=== PATIENT | male | born 1965 | race Caucasian/White ===

== ENCOUNTER 2019-07-17 04:24 | Emergency (ER) | payer BC, OTHER ==
--- NOTE | 2019-07-17 04:27 | PDOC ---
History of Present Illness - General History Source: Patient Exam Limitations: No Limitations - History of Present Illness Initial Comments: Pt is a 54 yo M, with PMH of brain tumor (received radiation treatment as adolescent) with subsequent frequent BCC of the face, and HTN, who presents via car from home after bleeding from his biopsy site. Pt states at 2 pm yesterday, he had a biopsy done by dermatology (Dr. Whitlock), but did not put a bandage on it overnight. Pt slept on that side and woke with bleeding. Pt bled through 2 pressure bandages applied by his , so came to ER. Pt does not take any AC. Pt denies any recent fevers/chills, headache, vertigo or light-headedness, vision changes, syncope, chest pain, palpitations, SOB, nausea/vomiting, abdominal pain, urinary symptoms, diarrhea/constipation, or leg swelling. Allergies: NKDA Derm: Dr. Whitlock Social: Pt denies any cigarette, alcohol, or drug use. Pt denies any recent travel or sick contacts. Surgical: as above Family: no relevant history. 07/17/19 05:02 <Maritza Medina - Last Filed: 07/17/19 05:09> <Chuck Adams - Last Filed: 07/17/19 05:34> - General Stated Complaint: BLEEDING LEFT EAR Time Seen by Provider: 07/17/19 04:27 Past History - Travel Traveled outside of the country in the last 30 days: No Close contact w/someone who was outside of country & ill: No <Maritza Medina - Last Filed: 07/17/19 05:09> <Chuck Adams - Last Filed: 07/17/19 05:34> - Past Medical History Home Medications: Ambulatory Orders Amlodipine Besylate 5 mg PO DAILY 07/17/19 Desmopressin Acetate [Ddavp] 0.2 mg PO TID 07/17/19 Losartan Potassium 100 mg PO DAILY 07/17/19 Review of Systems - Review of Systems Able to Perform ROS?: Yes Is the patient limited Guyanese proficient: No Constitutional: Yes: Weight Stable. No: Chills, Fever, Malaise HEENTM: No: Blurred Vision, Double Vision Respiratory: No: Cough, Shortness of Breath Cardiac (ROS): No: Chest Pain, Edema, Irregular Heart Rate, Lightheadedness, Palpitations, Syncope, Chest Tightness ABD/GI: No: Diarrhea, Nausea, Poor Appetite, Poor Fluid Intake, Vomiting : No: Burning, Dysuria, Pain, Urgency Musculoskeletal: No: Back Pain, Joint Pain, Muscle Pain, Muscle Weakness Integumentary: No: Rash Neurological: No: Headache, Numbness, Weakness, Unsteady Gait, Dizziness Psychiatric: No: Sleep Pattern Change, Change in Appetite Endocrine: No: Increased Urine, Change in Weight Hematologic/Lymphatic: No: Anemia, Blood Clots, Easy Bleeding, Easy Bruising <Maritza Medina - Last Filed: 07/17/19 05:09> *Physical Exam - Physical Exam Comments: Vitals stable, pt afebrile. Pt in NAD, obese body habitus. Pt alert and oriented x3. windows systems admin generally intact, muscular strength and sensation intact. No midline spinal tenderness, step-offs, or crepitus. Head normocephalic, atraumatic. Eyes PERRLA, EOMI. Oropharynx without erythema or exudates, no LAD b/l. No nasal congestion. TMs impacted with cerumen b/l. Hearing intact. Clear heart sounds, S1/S2, no JVD, b/l pedal edema, or heart murmur. Clear lung sounds, no respiratory distress, wheezes, crackles, or accessory muscle use. No abdominal or CVA tenderness to palpation, no rebound, no guarding. Abdomen soft, non-distended, and with normoactive bowel sounds. ~0.25 cm open, linear biopsy site to left orthodoxy region, just exterior to L ear. Bleeding well-controlled. Skin without jaundice or rash. 07/17/19 05:13 <Maritza Medina - Last Filed: 07/17/19 05:09> - Vital Signs Last Vital Signs Temp Pulse Resp BP Pulse Ox 99 F 91 H 20 135/86 97 07/17/19 04:37 07/17/19 04:37 07/17/19 04:37 07/17/19 04:37 07/17/19 04:37 <Chuck Adams - Last Filed: 07/17/19 05:34> Medical Decision Making - Medical Decision Making Pt was seen at bedside, also will be seen by attending Dr. Adams. Pt presenting with bleeding 2/2 to biopsy of left external ear/orthodoxy region yesterday. Pt not on AC and is asymptomatic. Pt declined pain medication at this time. Bleeding controlled after short period of holding pressure. Applied additional bacitracin and pressure dressing. Pt can be dc'd with f/u to joint cutter machine and PCP. 07/17/19 05:02 07/17/19 05:14 <AdamMaritza - Last Filed: 07/17/19 05:09> *DC/Admit/Observation/Transfer - Discharge Dispostion Decision to Admit order: No <Maritza Medina - Last Filed: 07/17/19 05:09> - Attestations Physician Attestion: 07/17/19 05:34 I have reviewed the plan as documented and agree with current plan as documented. Electronically co-signed by Chuck Adams MD <Chuck Adams - Last Filed: 07/17/19 05:34> Diagnosis at time of Disposition: Basal cell carcinoma (BCC) in situ of skin, Bleeding - Discharge Dispostion Disposition: HOME Condition at time of disposition: Improved - Referrals Referrals: Mitch Whitlock [Non Staff, Medical] - - Patient Instructions Printed Discharge Instructions: DI for Skin Lesion Removal, DI for Post- Surgical Bleeding Additional Instructions: You were seen in the ER today for bleeding after a biopsy done yesterday, which improved after some pressure in the ER. Please continue to keep the area clean, and you can apply bacitracin ointment to the area for antibiotic coverage. Please follow-up with your primary care doctor and joint cutter machine if necessary within 1-2 days to discuss your visit and make sure your symptoms have improved. Please return to the ER if you have any worsening or continued bleeding that does not stop with pressure, development of fevers or chills, loss of consciousness, inability to tolerate food or fluids, or any other concerns. Try to avoid sleeping on that side, or rubbing the area.
[2019-07-17 04:49] VITALS: BP 135/86; PULSE 91; TEMP 99; BMI 34.7
--- NOTE | 2019-07-17 05:08 | PDOC ---
Attending Attestation - Resident Resident Name: Maritza Medina - HPI HPI: 07/17/19 05:05 54m hx basal cell carcinoma s/p biopsy @ [facility] [employer] today presents with bleeding @ site of biopsy on L ear. Pt's states he took the bandage off the wound to sleep. While sleeping he noted the wound was bleeding. His applied direct pressure and note the wound began bleeding again. No CP Sob dizziness or palpitations. Not on AC, ASA, or plavix. - Physicial Exam PE: 07/17/19 05:06 agree w/ resident exam 2cm wound 5cm anterior to L ear, clot in place no active bleeding - Medical Decision Making 07/17/19 05:07 bleeding from biopsy site, now controlled. Stable vitals - not tachypnic or tachycardic. reassurance dressing placed return precautions.
== END 2019-07-17 05:08 | disposition home or self-care (01) ==
LOC: JER 04:24
DX: H95.42 Postprocedural hemorrhage of ear and mastoid process following other procedure (principal); Y84.8 Other medical procedures as the cause of abnormal reaction of the patient, or of later complication, without mention of misadventure at the time of the procedure; Z85.828 Personal history of other malignant neoplasm of skin
CPT/HCPCS: 99281-25

== ENCOUNTER 2019-11-05 12:37 | Inpatient (IN) | payer OTHER ==
--- NOTE | 2019-11-05 13:25 | PDOC ---
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 reports that he got lost on the way to his doctor's office and had some confusion regarding the month and the year. The patient reports that for the past week or so he has increased polyuria for which he has doubled his desmopression. He denies any fevers, illness, chest pain, shortness of breath or any other symptoms. Of note the patient has been caring for his as well as working the past few weeks as she broke her ankle. He has no other complaints. ROS GENERAL/CONSTITUTIONAL: No fever or chills. No weakness. HEAD, EYES, EARS, NOSE AND THROAT: No change in vision. No ear pain or discharge. No sore throat. CARDIOVASCULAR: No chest pain or shortness of breath RESPIRATORY: No cough, wheezing, or hemoptysis. GASTROINTESTINAL: No nausea, vomiting, diarrhea or constipation. GENITOURINARY: No dysuria, frequency, or change in urination. MUSCULOSKELETAL: No joint or muscle swelling or pain. No neck or back pain. SKIN: No rash NEUROLOGIC: No headache, vertigo, loss of consciousness, or change in strength/ sensation. PE GENERAL: Awake, alert, and fully oriented, in no acute distress HEAD: No signs of trauma, normocephalic, atraumatic EYES: PERRLA, EOMI, sclera anicteric, conjunctiva clear ENT: oropharynx clear without exudates. Moist mucosa NECK: Normal ROM, supple, LUNGS: No distress, speaks full sentences, clear to auscultation bilaterally HEART: Regular rate and rhythm, normal S1 and S2, no murmurs, rubs or gallops, peripheral pulses normal and equal bilaterally. ABDOMEN: Soft, nontender No guarding, no rebound. No masses EXTREMITIES : Normal inspection, Normal range of motion, no edema. No clubbing or cyanosis. NEUROLOGICAL: Intermittently does not recall month and date, but corrects self. Cranial nerves II through XII grossly intact. Normal speech no focal sensorimotor deficits SKIN: Warm, Dry, normal turgor, no rashes or lesions noted MDM DDX including but not limited to: electroylte vs infectious vs intracranial pathology ED Course: head ct, cxr, ua, cbc, cmp, ekg bloodwork wnl head ct - negative on reassessment, patient still mildly confused at not fully at baseline case discussed with medicine who agrees to admission plan to admit Chel Prudy PGY2 Emergency Medicine Past History - Past Medical History Allergies/Adverse Reactions: Allergies Allergy/AdvReac Type Severity Reaction Status Date / Time No Known Allergies Allergy Verified 11/05/19 13:09 Home Medications: Ambulatory Orders Amlodipine Besylate 5 mg PO DAILY 07/17/19 Desmopressin Acetate [Ddavp] 0.4 mg PO TID 07/17/19 Losartan Potassium 100 mg PO DAILY 07/17/19 Cancer: Yes COPD: No Diabetes: Yes (Insipidus) HTN: Yes - Immunization History Td Vaccination: Yes TDAP Vaccination: Yes Immunization Up to Date: Yes - Psycho Social/Smoking Cessation Hx Smoking History: Never smoked Have you smoked in the past 12 months: No Information on smoking cessation initiated: No Hx Alcohol Use: No Drug/Substance Use Hx: No *Physical Exam - Vital Signs Last Vital Signs Temp Pulse Resp BP Pulse Ox 98.9 F 84 18 135/68 95 11/05/19 13:05 11/05/19 13:05 11/05/19 13:05 11/05/19 13:05 11/05/19 13:12 ED Treatment Course - LABORATORY CBC & Chemistry Diagram: 11/06/19 05:50 11/06/19 05:50 Discharge - Discharge Information Problems reviewed: Yes Clinical Impression/Diagnosis: AMS (altered mental status) - Admission Yes - Follow up/Referral - Patient Discharge Instructions - Post Discharge Activity
[2019-11-05 13:53] LABS: BASO % 0.8 % (0-2.0); EOS % 7.5 % (0-4.5); HEMATOCRIT 41.8 % (35.4-49); HEMOGLOBIN 14.2 GM/dL (11.7-16.9); MCH 28.6 pg (25.7-33.7); MCHC 33.9 g/dl (32.0-35.9); MEAN CELL VOLUME 84.3 fl (80-96); MEAN PLT VOLUME 7.1 fl (7.5-11.1); MONO % 10.9 % (3.8-10.2); NEUT % 69.8 % (42.8-82.8); PLATELET COUNT 238 K/MM3 (134-434); RBC 4.95 M/mm3 (4.00-5.60); RDW 14.5 % (11.9-15.9); WHITE BLOOD COUNT 5.1 K/mm3 (4.0-10.0)
[2019-11-05 14:14] LABS: ALBUMIN 4.2 g/dl (3.4-5.0); BILIRUBIN,TOTAL 0.4 mg/dL (0.2-1); BLOOD UREA NITROGEN 18.2 mg/dL (7-18); CALCIUM 9.1 mg/dL (8.5-10.1); CREATININE 1.1 mg/dL (0.55-1.3); POTASSIUM 4.1 mmol/L (3.5-5.1)
[2019-11-05 14:27] LABS: URINE APPEARANCE CLEAR; URINE BILIRUBIN NEGATIVE (NEGATIVE); URINE COLOR YELLOW; URINE GLUCOSE (UA) NEGATIVE (NEGATIVE); URINE KETONE NEGATIVE (NEGATIVE); URINE LEUK ESTERASE NEGATIVE (NEGATIVE); URINE NITRITE NEGATIVE (NEGATIVE); URINE PROTEIN NEGATIVE (NEGATIVE); URINE UROBILINOGEN 0.2 mg/dL (0.2-1.0)
[2019-11-05 14:36] LABS: MAGNESIUM 2.3 mg/dL (1.8-2.4); PHOSPHOROUS 4.8 mg/dL (2.5-4.9)
--- NOTE | 2019-11-05 15:14 | EKG ---
Test Reason : Blood Pressure : / mmHG Vent. Rate : 073 BPM Atrial Rate : 073 BPM P-R Int : 154 ms QRS Dur : 082 ms QT Int : 406 ms P-R-T Axes : 043 035 038 degrees QTc Int : 447 ms POOR DATA QUALITY, INTERPRETATION MAY BE ADVERSELY AFFECTED NORMAL SINUS RHYTHM NORMAL ECG NO PREVIOUS ECGS AVAILABLE Confirmed by MALGORZATA JENKINS MD ([id number]) on 11/05/2019 3:14:26 PM Referred By: Confirmed By:MALGORZATA JENKINS MD
--- NOTE | 2019-11-05 16:05 | PDOC ---
Documentation entered by Victoria Billy SCRIBE, acting as scribe for Nancy Gomez MD. Nancy Gomez MD: This documentation has been prepared by the Mariajose roger Xhesika, SCRIBE, under my direction and personally reviewed by me in its entirety. I confirm that the documentation accurately reflects all work, treatment, procedures, and medical decision making performed by me. Attending Attestation - Resident Resident Name: Chel Purdy - ED Attending Attestation I have performed the following: I have examined & evaluated the patient, The case was reviewed & discussed with the resident, I agree w/resident's findings & plan, Exceptions are as noted - HPI HPI: 11/05/19 14:05 The patient is a 54 year old female with a significant PMH of basal cell carcinoma s/p biopsy, HTN, and Insipidus diabetes who presents to the emergency department for 1 week of increased urinary frequency and headache. Patient notes his Desmopressin Acetate was doubled from .2mg to .4mg. Pt reports feeling fatigue. notes the patient has been confused today, patient did not know the month and date. The patient denies chest pain, shortness of breath, and dizziness. Denies fever , chills, cough, nausea, vomiting, diarrhea and constipation. Denies dysuria, frequency, urgency and hematuria. Allergies: NKDA Derm: Dr. Whitlock - Physicial Exam PE: 11/05/19 16:01 GENERAL: The patient is in no acute distress, slowed responses. ENT: Ears normal, nares patent, oropharynx clear without exudates. Moist mucous membranes. NECK: Normal range of motion, supple LUNGS: Breath sounds equal, clear to auscultation bilaterally. No wheezes, and no crackles. HEART:Regular rate and rhythm, normal S1 and S2 without murmur, rub or gallop. ABDOMEN: Soft, nontender, normoactive bowel sounds. EXTREMITIES: Normal range of motion, no edema. NEUROLOGICAL: Cranial nerves II through XII grossly intact. Normal speech. No focal neurological deficits. SKIN: Warm, Dry, normal turgor, no rashes or lesions noted. - Medical Decision Making 11/05/19 16:02 Laboratory Tests 11/05/19 11/05/19 11/05/19 13:42 13:42 13:58 WBC 5.1 Hgb 14.2 Hct 41.8 Plt Count 238 BUN 18.2 H Creatinine 1.1 Urine Blood Urine Nitrite Ur Leukocyte Esterase Urine Osmolality Ur Random Sodium 53 11/05/19 11/05/19 14:00 14:00 WBC Hgb Hct Plt Count BUN Creatinine Urine Blood Negative Urine Nitrite Negative Ur Leukocyte Esterase Negative Urine Osmolality [address] head: Mild volume loss, ventricular dilatation and chronic microvascular ischemic disease Focal chronic infarct in the right anterior periventricular white matter No gross acute intracranial pathology Will contact drum sander 11/05/19 16:04
--- NOTE | 2019-11-05 17:19 | PN ---
Teaching Attending Note Name of Resident: Duran Dumont ATTENDING PHYSICIAN STATEMENT I saw and evaluated the patient. I reviewed the resident's note and discussed the case with the resident. I agree with the resident's findings and plan as documented. SUBJECTIVE: Patient is a 54 year old male with history of pinealoma (s/p radiation as teenager), diabetes insipidus, hypertension, presents with complaint of confusion. As per patient he doubled his dose of the desmopressin since did not want to get up at night since was urinating constantly. OBJECTIVE: Vital Signs Temperature 98.9 F 11/05/19 13:05 Pulse Rate 79 11/05/19 16:51 Respiratory Rate 17 11/05/19 16:51 Blood Pressure 152/93 11/05/19 16:51 O2 Sat by Pulse Oximetry (%) 100 11/05/19 16:51 GENERAL: The patient is awake, alert, and fully oriented, in no acute distress. HEAD: Normal with no signs of trauma. EYES: PERRL, extraocular movements intact, sclera anicteric, conjunctiva clear. ENT: Ears normal, oropharynx clear without exudates, moist mucous membranes. NECK: Trachea midline, full range of motion, supple. LUNGS: Breath sounds equal, clear to auscultation bilaterally, no wheezes, no crackles, no accessory muscle use. HEART: Regular rate and rhythm, S1, S2 without murmur, rub or gallop. ABDOMEN: Soft, nontender, nondistended, normoactive bowel sounds, no guarding, no rebound, no hepatosplenomegaly, no masses. EXTREMITIES: 2+ pulses, warm, well-perfused, no edema. NEUROLOGICAL: Cranial nerves II through XII grossly intact. Normal speech, gait not observed. PSYCH: Normal mood, normal affect. SKIN: Warm, dry, normal turgor, no rashes or lesions noted CBCD WBC 5.1 K/mm3 (4.0-10.0) 11/05/19 13:42 RBC 4.95 M/mm3 (4.00-5.60) 11/05/19 13:42 Hgb 14.2 GM/dL (11.7-16.9) 11/05/19 13:42 Hct 41.8 % (35.4-49) 11/05/19 13:42 MCV 84.3 fl (80-96) 11/05/19 13:42 MCHC 33.9 g/dl (32.0-35.9) 11/05/19 13:42 RDW 14.5 % (11.9-15.9) 11/05/19 13:42 Plt Count 238 K/MM3 (134-434) 11/05/19 13:42 MPV 7.1 fl (7.5-11.1) L 11/05/19 13:42 CMP Sodium 144 mmol/L (136-145) 11/05/19 13:42 Potassium 4.1 mmol/L (3.5-5.1) 11/05/19 13:42 Chloride 108 mmol/L (98-107) H 11/05/19 13:42 Carbon Dioxide 28 mmol/L (21-32) 11/05/19 13:42 Anion Gap 8 MMOL/L (8-16) 11/05/19 13:42 BUN 18.2 mg/dL (7-18) H 11/05/19 13:42 Creatinine 1.1 mg/dL (0.55-1.3) 11/05/19 13:42 Random Glucose 95 mg/dL (74-106) 11/05/19 13:42 Calcium 9.1 mg/dL (8.5-10.1) 11/05/19 13:42 Total Bilirubin 0.4 mg/dL (0.2-1) 11/05/19 13:42 AST 17 U/L (15-37) 11/05/19 13:42 ALT 33 U/L (13-61) 11/05/19 13:42 Alkaline Phosphatase 69 U/L (45-117) 11/05/19 13:42 Total Protein 7.0 g/dl (6.4-8.2) 11/05/19 13:42 Albumin 4.2 g/dl (3.4-5.0) 11/05/19 13:42 Home Medications Medication Instructions Recorded Amlodipine Besylate 5 mg PO DAILY 07/17/19 Desmopressin Acetate [Ddavp] 0.2 mg PO TID 07/17/19 Losartan Potassium 100 mg PO DAILY 07/17/19 CT head: Mild volume loss, ventricular dilatation and chronic microvascular ischemic disease Focal chronic infarct in the right anterior periventricular white matter No gross acute intracranial pathology ASSESSMENT AND PLAN: Patient is a 54yo male with Hx of DI presented with acute change of mental status and as per patient he doubles the dose of desmopressin at nights to 0.4mg since has been going to the bathroom more than usual. # Acute mild dehydration nepro/neuro/endocrine on the case , will repeat labs in am # Hx of DI will continue with 0.3mg of desmopressin bid, check sodium level in am # chronic focal infarct in the right anterior periventricular white matter , ordered MRI is pending , EEg is pending , as per neuro nothing to be done. DVt Px: early ambulation /scds
--- NOTE | 2019-11-05 18:10 | HP ---
CHIEF COMPLAINT: confusion Relief Captain: Dr. Grant Owens HISTORY OF PRESENT ILLNESS: Patient is a 54 year old male with history of pinealoma (s/p radiation as teenager), diabetes insipidus, hypertension, presents with complaint of confusion. 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 Upon EMS presentation, patient reportedly was unable to answer month, or year accurately. Patients denies prior occurrence of these symptoms. Denies any trauma, falls, or loss of consciousness. Patient does admit doubling his evening dose of Desmopressin due to excessive urination during the day, in attempt to diminishing nocturia. Upon my encounter, patient is alert, oriented to person, place, and year. Admits improvement of his symptoms, however states he still feels tired, and expresses concern that he is responding slower than his baseline. 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 (2) NIHSS 0 (upon my encounter). 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 Absent: fever, chills, diaphoresis, generalized weakness, malaise, loss of appetite, weight change HEENT: Absent: rhinorrhea, nasal congestion, throat pain, throat swelling, difficulty swallowing, mouth swelling, ear pain, eye pain, visual changes CARDIOVASCULAR: Absent: chest pain, syncope, palpitations, irregular heart rate, lightheadedness , peripheral edema RESPIRATORY: Absent: cough, shortness of breath, dyspnea with exertion, orthopnea, wheezing, stridor, hemoptysis GASTROINTESTINAL: Absent: abdominal pain, abdominal distension, nausea, vomiting, diarrhea, constipation, melena, hematochezia GENITOURINARY: Absent: dysuria, frequency, urgency, hesitancy, hematuria, flank pain, genital pain MUSCULOSKELETAL: Absent: myalgia, arthralgia, joint swelling, back pain, neck pain SKIN: Absent: rash, itching, pallor HEMATOLOGIC/IMMUNOLOGIC: Absent: easy bleeding, easy bruising, lymphadenopathy, frequent infections ENDOCRINE: Absent: unexplained weight gain, unexplained weight loss, heat intolerance, cold intolerance NEUROLOGIC: Endorses: mental status change. Absent: headache, focal weakness or paresthesias , dizziness, unsteady gait, seizure, bladder or bowel incontinence PSYCHIATRIC: Absent: anxiety, depression, suicidal or homicidal ideation, hallucinations. PHYSICAL EXAMINATION Vital Signs - 24 hr 11/05/19 11/05/19 11/05/19 13:05 13:12 16:51 Temperature 98.9 F Pulse Rate 84 Pulse Rate [ 79 Apical] Respiratory 18 17 Rate Blood Pressure 135/68 Blood Pressure 152/93 [Left Arm] O2 Sat by Pulse 95 95 100 Oximetry (%) GENERAL: The patient is awake, alert, and fully oriented, in no acute distress. HEAD: Normocephalic, atraumatic. EYES: PERRL, extraocular movements intact, sclera anicteric, conjunctiva clear. ENT: Oropharynx clear, without erythema or exudates. Moist mucous membranes. NECK: Trachea midline, full range of motion. Supple without lymphadenopathy. Negative nucchal rigidity. LUNGS: Breath sounds equal, clear to auscultation bilaterally, no wheezes, no crackles. No accessory muscle use. HEART: Regular rate and rhythm, S1, S2 without murmur, rub or gallop. ABDOMEN: Soft, nondistended, nontender to light and deep palpation x4 quadrants , no rebound tenderness, no guarding. Normoactive bowel sounds x4 quadrants. no hepatosplenomegaly, no masses. EXTREMITIES: 2+ radial, dorsalis pedis pulses bilaterally. Warm, well-perfused. No lower extremity edema bilaterally. NEUROLOGICAL: Cranial nerves II through XII grossly intact. Normal speech. Strength 5/5 bilateral upper and lower extremities. NIHSS 0. PSYCH: Flat affect upon my encounter SKIN: Warm, dry. Laboratory Results - last 24 hr 11/05/19 11/05/19 11/05/19 13:42 13:42 13:58 WBC 5.1 RBC 4.95 Hgb 14.2 Hct 41.8 MCV 84.3 MCH 28.6 MCHC 33.9 RDW 14.5 Plt Count 238 MPV 7.1 L Absolute Neuts (auto) 3.6 Neutrophils % 69.8 Lymphocytes % 11.0 Monocytes % 10.9 H Eosinophils % 7.5 H Basophils % 0.8 Nucleated RBC % 0 Sodium 144 Potassium 4.1 Chloride 108 H Carbon Dioxide 28 Anion Gap 8 BUN 18.2 H Creatinine 1.1 Est GFR (CKD-EPI)AfAm 87.13 Est GFR (CKD-EPI)NonAf 75.17 Random Glucose 95 Calcium 9.1 Phosphorus 4.8 Magnesium 2.3 Total Bilirubin 0.4 AST 17 ALT 33 Alkaline Phosphatase 69 Total Protein 7.0 Albumin 4.2 Urine Color Urine Appearance Urine pH Ur Specific [place] Urine Protein Urine Glucose (UA) Urine Ketones Urine Blood Urine Nitrite Urine Bilirubin Urine Urobilinogen Ur Leukocyte Esterase Urine Osmolality Ur Random Sodium 53 11/05/19 11/05/19 14:00 14:00 WBC RBC Hgb Hct MCV MCH MCHC RDW Plt Count MPV Absolute Neuts (auto) Neutrophils % Lymphocytes % Monocytes % Eosinophils % Basophils % Nucleated RBC % Sodium Potassium Chloride Carbon Dioxide Anion Gap BUN Creatinine Est GFR (CKD-EPI)AfAm Est GFR (CKD-EPI)NonAf Random Glucose Calcium Phosphorus Magnesium Total Bilirubin AST ALT Alkaline Phosphatase Total Protein Albumin Urine Color Yellow Urine Appearance Clear Urine pH 5.0 Ur Specific [place] 1.026 Urine Protein Negative Urine Glucose (UA) Negative Urine Ketones Negative Urine Blood Negative Urine Nitrite Negative Urine Bilirubin Negative Urine Urobilinogen 0.2 Ur Leukocyte Esterase Negative Urine Osmolality 857 Ur Random Sodium ASSESSMENT/PLAN: Patient is a 54 year old male with history of pinealoma (s/p radiation as teenager), diabetes insipidus, hypertension admitted for acute metabolic encephalopathy. 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 -NIHSS 0 -Case discussed with Dr. Muse, given lack of WBC count, fever, or nuucchal rigidity with improvement of mental status, no indication for spinal tap at this time. Recommendations appreciated. -Obtain MRI brain, an EEG -Follow blood cultures, urine cultures. Monitor without antibiotics as patient afebrile, without WBC elevation. -Fall precautions Diabetes insipidus -Desmopressin dose confirmed with [facility]; continue 0.2mg two tablets three times per day. -Nephrology consult (Dr. Benton) appreciated -Endocrinology consult (Dr. Quiroz) appreciated Hypertension -Continue home medications; Losartan 100mg PO daily, Amlodipine 5mg PO daily FEN -No IV fluids indicated -Follow BMP -Sodium controlled diet Prophylaxis -Heparin 5000units subq TID Disposition -Admit to Telemetry floor Visit type - Emergency Visit Emergency Visit: Yes ED Registration Date: 11/05/19 Care time: The patient presented to the Emergency Department on the above date and was hospitalized for further evaluation of their emergent condition. - New Patient This patient is new to me today: Yes Date on this admission: 11/05/19 - Critical Care Critical Care patient: No ATTENDING PHYSICIAN STATEMENT I saw and evaluated the patient. I reviewed the resident's note and discussed the case with the resident. I agree with the resident's findings and plan as documented. SUBJECTIVE: OBJECTIVE: ASSESSMENT AND PLAN:
--- NOTE | 2019-11-05 19:31 | CON.NEURO ---
Consult - Alcohol/Substance Use Hx Alcohol Use: No - Smoking History Smoking history: Never smoked Have you smoked in the past 12 months: No Home Medications - Allergies Allergies/Adverse Reactions: Allergies Allergy/AdvReac Type Severity Reaction Status Date / Time No Known Allergies Allergy Verified 11/05/19 13:09 - Home Medications Home Medications: Ambulatory Orders Amlodipine Besylate 5 mg PO DAILY 07/17/19 Desmopressin Acetate [Ddavp] 0.4 mg PO TID 07/17/19 Losartan Potassium 100 mg PO DAILY 07/17/19 Physical Exam-Neuro Vital Signs: Vital Signs Temperature 98.9 F 11/05/19 13:05 Pulse Rate 79 11/05/19 16:51 Respiratory Rate 17 11/05/19 16:51 Blood Pressure 152/93 11/05/19 16:51 O2 Sat by Pulse Oximetry (%) 100 11/05/19 16:51 Labs: CBC, BMP 11/05/19 13:42 11/05/19 13:42 Assessment/Plan CC Episode of confusion HPI 54 year old male history of Pinealoma ( s.p radition during his teens), Diabetes, insipidus, HTN. Patient was brought for confusion and disroientation. His desmopressin was increased. Patient denies any head injury, fever , vomiting or hemiparesis. Patient has ct head it is unremarkable. There is chronic microvascular changes. 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 Smoking: denies smoking cigarettes Alcohol: denies alcohol consumption Drugs: denies illicit drug use Allergies No Known Allergies Allergy (Verified 11/05/19 13:09) HOME MEDICATIONS: Home Medications Medication Instructions Recorded Amlodipine Besylate 5 mg PO DAILY 07/17/19 Desmopressin Acetate [Ddavp] 0.2 mg PO TID 07/17/19 Losartan Potassium 100 mg PO DAILY 07/17/19 ROS,FH,SH reviewed in chart NEUROLOGICAL EXAMINATION Alert oriented x 3, neck is supple , vss, speech is normal, eom, pupils reactive no face asymmetry moving all ext sensation is normal ftn,hts is normal ct head unemarkable Assessment/Plan 4 year old male history of Pinealoma ( s.p radition during his teens), Diabetes, insipidus, HTN. was brought for acute confusion, now resolved. Patient is feeling tired. ct head unemarkable. Most likely transient metabolic abnormality Plan: suggest to do mri of brain and eeg - unlikley to be status epilepticus, meningitis - tia cant be ruled out, if mri of brain showed any ischemic changes, woudl do further work up Thanking you so much Marc Muse MD
[2019-11-05] MEDS ORDERED: DESMOPRESSIN ACETATE 0.2 MG TABLET PO SCH (22:00)
[2019-11-05] MEDS: DESMOPRESSIN ACETATE 0.1 MG TABLET PO SCH (23:05)
[2019-11-06 06:48] LABS: HEMATOCRIT 40.2 % (35.4-49); HEMOGLOBIN 13.9 GM/dL (11.7-16.9); MCH 28.8 pg (25.7-33.7); MCHC 34.7 g/dl (32.0-35.9); MEAN CELL VOLUME 83.1 fl (80-96); PLATELET COUNT 214 K/MM3 (134-434); RBC 4.84 M/mm3 (4.00-5.60); RDW 14.5 % (11.9-15.9); WHITE BLOOD COUNT 5.3 K/mm3 (4.0-10.0)
[2019-11-06 07:06] LABS: BILIRUBIN,TOTAL 0.6 mg/dL (0.2-1); BLOOD UREA NITROGEN 21.7 mg/dL (7-18); CALCIUM 8.9 mg/dL (8.5-10.1); CREATININE 1.1 mg/dL (0.55-1.3); MAGNESIUM 2.3 mg/dL (1.8-2.4); PHOSPHOROUS 4.3 mg/dL (2.5-4.9); POTASSIUM 3.7 mmol/L (3.5-5.1); TOT PROT 6.8 g/dl (6.4-8.2)
[2019-11-06] MEDS ORDERED: LOSARTAN POTASSIUM 50 MG TABLET (FP) ONE (09:56)
[2019-11-06] MEDS ORDERED: amLODIPine BESYLATE 5 MG TABLET (FP) ONE (09:56)
[2019-11-06] MEDS ORDERED: DIPHTH,PERTUSS(ACELL),TET 0.5 ML DISP.SYRIN IM ONE (10:16)
[2019-11-06] MEDS: amLODIPine BESYLATE 5 MG TABLET (FP) PO SCH (10:20)
[2019-11-06] MEDS: LOSARTAN POTASSIUM 50 MG TABLET (FP) PO SCH (10:20)
[2019-11-06] MEDS: DESMOPRESSIN ACETATE 0.1 MG TABLET PO SCH (12:13)
--- NOTE | 2019-11-06 13:54 | CONSULT ---
Consult Consult Specialty:: Endocrinology Referred by:: Duran Dumont Reason for Consultation:: DI - History of Present Illness Chief Complaint: AMS History of Present Illness: This is a 54 year old male with history of pinealoma (s/p radiation as teenager) , diabetes insipidus, hypertension who presented with complaint of confusion. 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 Upon EMS presentation, patient reportedly was unable to answer month, or year accurately. Patients denies prior occurrence of these symptoms. Denies any trauma, falls, or loss of consciousness. In the hosptila Pt was patient was alert, oriented to person, place, and year. Admits improvement of his symptoms, however stated that he still felt tired. Pt was on Desmopressin at home and had been taking 2 extra doses during the night to prevent nocturia. He says has nocturia 3 times if he does take the extra doses during the night, - History Source History Provided By: Patient, Family Member, Medical Record - Past Medical History Endocrine: Yes: Diabetes Insipidus - Alcohol/Substance Use Hx Alcohol Use: No - Smoking History Smoking history: Never smoked Have you smoked in the past 12 months: No Home Medications - Allergies Allergies/Adverse Reactions: Allergies Allergy/AdvReac Type Severity Reaction Status Date / Time No Known Allergies Allergy Verified 11/05/19 13:09 - Home Medications Home Medications: Ambulatory Orders Amlodipine Besylate 5 mg PO DAILY 07/17/19 Desmopressin Acetate [Ddavp] 0.4 mg PO TID 07/17/19 Losartan Potassium 100 mg PO DAILY 07/17/19 Review of Systems - Review of Systems Constitutional: reports: Malaise Eyes: reports: No Symptoms HENT: reports: No Symptoms Neck: reports: No Symptoms Cardiovascular: reports: No Symptoms Respiratory: reports: No Symptoms Gastrointestinal: reports: No Symptoms Genitourinary: reports: No Symptoms Musculoskeletal: reports: No Symptoms Neurological: reports: No Symptoms Endocrine: reports: No Symptoms Hematology/Lymphatic: reports: No Symptoms Psychiatric: reports: No Symptoms Physical Exam Vital Signs: Vital Signs Temperature 98.6 F 11/06/19 10:47 Pulse Rate 87 11/06/19 10:47 Respiratory Rate 19 11/06/19 10:47 Blood Pressure 145/67 11/06/19 10:47 O2 Sat by Pulse Oximetry (%) 99 11/06/19 10:47 Constitutional: Yes: No Distress, Calm Eyes: Yes: Conjunctiva Clear, EOM Intact HENT: Yes: Atraumatic, Normocephalic Neck: Yes: Supple, Trachea Midline Cardiovascular: Yes: Regular Rate and Rhythm Respiratory: Yes: Regular, CTA Bilaterally Gastrointestinal: Yes: Normal Bowel Sounds, Soft Renal/: Yes: WNL Breast(s): Yes: WNL Musculoskeletal: Yes: WNL Extremities: Yes: WNL Edema: No Neurological: Yes: Alert, Oriented Labs: CBC, BMP 11/06/19 05:50 11/06/19 05:50 Assessment/Plan AP: AMS: Metabolic Encephalopthu7 Seen by Neurology, Consult noted Transient metabolic disorder DI: On Desmopressin 0.4mg TID Will change to 0.2mg 8 AM 0.2mg at 2 PM, 0.4mg and 8 PM and 0.4mg at 12MN Monitor electrolytes Got Desmopressin 0.3mg today so far BMP now and in AM Adjust dose according to symptoms and BMP results Discussed with housestaff Will F/u
[2019-11-06] MEDS ORDERED: DESMOPRESSIN ACETATE 0.1 MG TABLET PO SCH (14:00)
[2019-11-06] MEDS ORDERED: POTASSIUM CHLORIDE TABS 20 MEQ TABLET.ER (FP) PO ONE ×2 (15:19→16:32)
--- NOTE | 2019-11-06 15:31 | PN ---
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 Patient was brought for confusion and disroientation. His desmopressin was increased. Patient denies any head injury, fever , vomiting or hemiparesis. Patient has ct head it is unremarkable. There is chronic microvascular changes. confused resolved. mri of brain pending. eeg is normal. NEUROLOGICAL EXAMINATION Alert oriented x 3, neck is supple , vss, speech is normal, eom, pupils reactive no face asymmetry moving all ext sensation is normal ftn,hts is normal ct head unemarkable eeg is normal mri of brain pending Assessment/Plan 4 year old male history of Pinealoma ( s.p radition during his teens), Diabetes, insipidus, HTN. was brought for transient confusion, now resolved. Patient is feeling tired. ct head unemarkable. Most likely transient metabolic abnormality vs Trans global amnesia. Plan: eeg is normal, waiting for mri - unlikley to be status epilepticus, meningitis - TIA/Stroke cant be ruled out, if mri of brain showed any ischemic changes, would do further work up Thanking you so much Marc Muse MD
--- NOTE | 2019-11-06 17:04 | PN ---
Physical Exam: SUBJECTIVE: Patient seen and examined NAEON. No tele abnormalities noted Endorses fatigue. , at bedside, believes pt is more alert but not at baseline OBJECTIVE: Vital Signs Period Temp Pulse Resp BP Sys/Harmon Pulse Ox Last 24 Hr 97.6 F-98.6 F 71-87 17-20 124-153/67-93 97-100 GENERAL: The patient is awake, alert, and fully oriented, in no acute distress. Mildly lethargic-appearing HEAD: Normal with no signs of trauma. EYES: PERRL, extraocular movements intact, sclera anicteric, conjunctiva clear. No ptosis. ENT: Ears normal, nares patent, moist mucous membranes. NECK: Trachea midline, full range of motion, supple. LUNGS: Breath sounds equal, clear to auscultation bilaterally, no wheezes, no crackles, no accessory muscle use. HEART: Regular rate and rhythm, S1, S2 without murmur, rub or gallop. ABDOMEN: Soft, nontender, nondistended, normoactive bowel sounds, no guarding, no rebound, no hepatosplenomegaly, no masses. EXTREMITIES: 2+ pulses, warm, well-perfused, no edema. NEUROLOGICAL: Cranial nerves II through XII grossly intact. Normal speech, normal gait observed. PSYCH: Normal mood, normal affect. SKIN: Warm, dry, normal turgor, no rashes or lesions noted Laboratory Results - last 24 hr 11/06/19 11/06/19 05:50 05:50 WBC 5.3 RBC 4.84 Hgb 13.9 Hct 40.2 MCV 83.1 MCH 28.8 MCHC 34.7 RDW 14.5 Plt Count 214 MPV 7.0 L Sodium 143 Potassium 3.7 Chloride 109 H Carbon Dioxide 26 Anion Gap 7 L BUN 21.7 H Creatinine 1.1 Est GFR (CKD-EPI)AfAm 87.13 Est GFR (CKD-EPI)NonAf 75.17 Random Glucose 99 Calcium 8.9 Phosphorus 4.3 Magnesium 2.3 Total Bilirubin 0.6 AST 15 ALT 30 Alkaline Phosphatase 68 Total Protein 6.8 Albumin 4.0 Active Medications Generic Name Dose Route Start Last Admin Trade Name Freq PRN Reason Stop Dose Admin Amlodipine Besylate 5 mg 11/06/19 10:00 11/06/19 10:20 Norvasc - PO 5 mg DAILY JACKIE Administration Desmopressin Acetate 0.4 mg 11/06/19 14:00 Ddavp - PO TID JACKIE Losartan Potassium 100 mg 11/06/19 10:00 11/06/19 10:20 Cozaar - PO 100 mg DAILY JACKIE Administration ASSESSMENT/PLAN: 54 year old male with history of pinealoma (s/p radiation at 15yo), diabetes insipidus, hypertension, admitted for acute metabolic encephalopathy. Patient was expressing confusion, mild short-term memory loss. Has been endorsing frequent urination. Denying focal neurologic deficit. Etiology unclear. 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 > EEG(11/06/19) --read pending > MRI Brain --pending - NIHSS 0 - Neuro Consult(Dr. Muse) --no indication for spinal tap at this time --unlikley to be status epilepticus, meningitis --TIA cant be ruled out, if mri of brain showed any ischemic changes, woudl do further work up -Fall precautions #Diabetes insipidus - Nephro Consult(Dr Benton): -- Desmopressin 0.3mg TID -- fu PM Na - Endocrinology consult (Dr. Quiroz): --recs pending #chronic essential HTN -Continue home medications; Losartan 100mg PO daily, Amlodipine 5mg PO daily #FEN - No IV fluids indicated - Follow BMP - Sodium controlled diet #Prophylaxis -Heparin 5000units subq TID Disposition -Admit to Telemetry floor Visit type - Emergency Visit Emergency Visit: No - New Patient This patient is new to me today: No - Critical Care Critical Care patient: No ATTENDING PHYSICIAN STATEMENT I saw and evaluated the patient. I reviewed the resident's note and discussed the case with the resident. I agree with the resident's findings and plan as documented. SUBJECTIVE: OBJECTIVE: ASSESSMENT AND PLAN:
--- NOTE | 2019-11-06 17:05 | CONSULT ---
Consult Consult Specialty:: Nephrology Reason for Consultation:: diabetes insipidus - History of Present Illness Chief Complaint: altered mental status History of Present Illness: Pt is a 54 year old male with pmhx of pinealoma, diabetes insipidus and htn who presents to the ER with confusion. I was called to evaluate him as he has DI and is on desmopressin. He has not followed with endocrine in about a year. He recently increased his desmopressin dose at home. He currently feels well. He says that his confusion is improved. His is at bedside. His sodium was normal in the hospital. - History Source History Provided By: Patient - Past Medical History Cardio/Vascular: Yes: HTN Endocrine: Yes: Diabetes Insipidus - Alcohol/Substance Use Hx Alcohol Use: No - Smoking History Smoking history: Never smoked Have you smoked in the past 12 months: No Home Medications - Allergies Allergies/Adverse Reactions: Allergies Allergy/AdvReac Type Severity Reaction Status Date / Time No Known Allergies Allergy Verified 11/05/19 13:09 - Home Medications Home Medications: Ambulatory Orders Amlodipine Besylate 5 mg PO DAILY 07/17/19 Desmopressin Acetate [Ddavp] 0.4 mg PO TID 07/17/19 Losartan Potassium 100 mg PO DAILY 07/17/19 Family Medical History Family History: Denies Review of Systems - Review of Systems Constitutional: reports: Malaise Eyes: reports: No Symptoms HENT: reports: No Symptoms Neck: reports: No Symptoms Cardiovascular: reports: No Symptoms Respiratory: reports: No Symptoms Gastrointestinal: reports: No Symptoms Genitourinary: reports: No Symptoms Musculoskeletal: reports: No Symptoms Integumentary: reports: No Symptoms Neurological: reports: No Symptoms Endocrine: reports: No Symptoms Hematology/Lymphatic: reports: No Symptoms Psychiatric: reports: No Symptoms Physical Exam Vital Signs: Vital Signs Temperature 98.4 F 11/06/19 14:46 Pulse Rate 76 11/06/19 14:46 Respiratory Rate 18 11/06/19 14:46 Blood Pressure 124/79 11/06/19 14:46 O2 Sat by Pulse Oximetry (%) 99 11/06/19 10:47 Constitutional: Yes: Calm Eyes: Yes: Conjunctiva Clear HENT: Yes: Atraumatic Cardiovascular: Yes: S1, S2 Respiratory: Yes: CTA Bilaterally Gastrointestinal: Yes: Normal Bowel Sounds, Soft Renal/: Yes: WNL Musculoskeletal: Yes: WNL Edema: No Neurological: Yes: Oriented Psychiatric: Yes: Oriented Labs: CBC, BMP 11/06/19 05:50 11/06/19 05:50 Laboratory Tests 11/05/19 11/05/19 11/06/19 13:42 14:00 05:50 Sodium 143 Potassium 3.7 Chloride 109 H Carbon Dioxide 26 Anion Gap 7 L BUN 21.7 H Creatinine 1.1 1.1 Urine Protein Negative Urine Blood Negative Imaging - Results Chest X-ray: Report Reviewed Assessment/Plan Current Medications Generic Name Dose Route Start Last Admin Trade Name Freq PRN Reason Stop Dose Admin Amlodipine Besylate 5 mg 11/06/19 10:00 11/06/19 10:20 Norvasc - PO 5 mg DAILY JACKIE Administration Desmopressin Acetate 0.4 mg 11/06/19 14:00 Ddavp - PO TID JACKIE Losartan Potassium 100 mg 11/06/19 10:00 11/06/19 10:20 Cozaar - PO 100 mg DAILY JACKIE Administration Impression 1. diabetes insipidus 2. htn 3. change in mental status/confusion Plan - cont desmopressin as 0.4 q 8 hrs - monitor sodium level - discussed with endocrine - discussed with medical team - sodium level is stable - bp stable
[2019-11-06] MEDS: DESMOPRESSIN ACETATE 0.2 MG TABLET PO SCH ×2 (17:30→21:31)
--- NOTE | 2019-11-06 17:43 | PN ---
Teaching Attending Note Name of Resident: Enoch Armijo ATTENDING PHYSICIAN STATEMENT I saw and evaluated the patient. I reviewed the resident's note and discussed the case with the resident. I agree with the resident's findings and plan as documented. SUBJECTIVE: Patient is comfortable with no acute distress. Vital Signs Temperature 98.4 F 11/06/19 14:46 Pulse Rate 76 11/06/19 14:46 Respiratory Rate 18 11/06/19 14:46 Blood Pressure 124/79 11/06/19 14:46 O2 Sat by Pulse Oximetry (%) 99 11/06/19 10:47 GENERAL: The patient is awake, alert, and fully oriented, in no acute distress. HEAD: Normal with no signs of trauma. EYES: PERRL, extraocular movements intact, sclera anicteric, conjunctiva clear. ENT: Ears normal, oropharynx clear without exudates, moist mucous membranes. NECK: Trachea midline, full range of motion, supple. LUNGS: Breath sounds equal, clear to auscultation bilaterally, no wheezes, no crackles, no accessory muscle use. HEART: Regular rate and rhythm, S1, S2 without murmur, rub or gallop. ABDOMEN: Soft, NT,ND, normoactive bowel sounds, no guarding, no rebound, no hepatosplenomegaly, no masses. EXTREMITIES: 2+ pulses, warm, well-perfused, no edema. NEUROLOGICAL: Cranial nerves II through XII grossly intact. Normal speech, gait is stable . PSYCH: Normal mood, normal affect. SKIN: Warm, dry, normal turgor, no rashes or lesions noted CBCD WBC 5.1 K/mm3 (4.0-10.0) 11/05/19 13:42 RBC 4.95 M/mm3 (4.00-5.60) 11/05/19 13:42 Hgb 14.2 GM/dL (11.7-16.9) 11/05/19 13:42 Hct 41.8 % (35.4-49) 11/05/19 13:42 MCV 84.3 fl (80-96) 11/05/19 13:42 MCHC 33.9 g/dl (32.0-35.9) 11/05/19 13:42 RDW 14.5 % (11.9-15.9) 11/05/19 13:42 Plt Count 238 K/MM3 (134-434) 11/05/19 13:42 MPV 7.1 fl (7.5-11.1) L 11/05/19 13:42 CMP Sodium 144 mmol/L (136-145) 11/05/19 13:42 Potassium 4.1 mmol/L (3.5-5.1) 11/05/19 13:42 Chloride 108 mmol/L (98-107) H 11/05/19 13:42 Carbon Dioxide 28 mmol/L (21-32) 11/05/19 13:42 Anion Gap 8 MMOL/L (8-16) 11/05/19 13:42 BUN 18.2 mg/dL (7-18) H 11/05/19 13:42 Creatinine 1.1 mg/dL (0.55-1.3) 11/05/19 13:42 Random Glucose 95 mg/dL (74-106) 11/05/19 13:42 Calcium 9.1 mg/dL (8.5-10.1) 11/05/19 13:42 Total Bilirubin 0.4 mg/dL (0.2-1) 11/05/19 13:42 AST 17 U/L (15-37) 11/05/19 13:42 ALT 33 U/L (13-61) 11/05/19 13:42 Alkaline Phosphatase 69 U/L (45-117) 11/05/19 13:42 Total Protein 7.0 g/dl (6.4-8.2) 11/05/19 13:42 Albumin 4.2 g/dl (3.4-5.0) 11/05/19 13:42 Home Medications Medication Instructions Recorded Amlodipine Besylate 5 mg PO DAILY 07/17/19 Desmopressin Acetate [Ddavp] 0.2 mg PO TID 07/17/19 Losartan Potassium 100 mg PO DAILY 07/17/19 CT head: Mild volume loss, ventricular dilatation and chronic microvascular ischemic disease Focal chronic infarct in the right anterior periventricular white matter No gross acute intracranial pathology ASSESSMENT AND PLAN: Patient is a 54yo male with Hx of DI presented with acute change of mental status and as per patient he doubles the dose of desmopressin at nights to 0.4mg since has been going to the bathroom more than usual. # Acute mild dehydration nepro/neuro/endocrine on the case # Hx of DI , as per nephro to change the dose to 0.4mg tid of desmopressin. MRI is pending. # chronic focal infarct in the right anterior periventricular white matter ,mri is pending. DVT Px: SCds, heparin pending MRI
[2019-11-06] MEDS ORDERED: SODIUM CHLORIDE 1,000 ML IV SCH (19:45)
[2019-11-06] MEDS ORDERED: ASPIRIN 81 MG CHEWABLE TABLETS PO SCH (19:45)
[2019-11-06] MEDS ORDERED: ASPIRIN 81 MG CHEWABLE TABLETS PO ONE (20:00)
[2019-11-06] MEDS ORDERED: PT OWN MED DRAWER 7, Y5N ONE (21:07)
[2019-11-06 21:26] LABS: BLOOD UREA NITROGEN 18.9 mg/dL (7-18); CALCIUM 9.2 mg/dL (8.5-10.1); CREATININE 1.3 mg/dL (0.55-1.3); POTASSIUM 4.1 mmol/L (3.5-5.1)
[2019-11-06] MEDS: HEPARIN NA (PORCINE) 5,000 UNITS/ML 1ML VIAL SQ SCH (21:31)
[2019-11-06] MEDS: ATORVASTATIN CA 40 MG TABLET (FP) PO SCH (21:31)
[2019-11-07] MEDS: HEPARIN NA (PORCINE) 5,000 UNITS/ML 1ML VIAL SQ SCH ×3 (05:33→21:34)
[2019-11-07] MEDS: DESMOPRESSIN ACETATE 0.2 MG TABLET PO SCH ×3 (05:33→21:36)
[2019-11-07] MEDS ORDERED: ONDANSETRON 4 MG/2 ML VIAL IVPUSH ONE (06:10)
[2019-11-07] MEDS ORDERED: ONDANSETRON 4 MG/2 ML VIAL ONE (06:16)
[2019-11-07 06:23] LABS: HEMATOCRIT 39.2 % (35.4-49); HEMOGLOBIN 13.4 GM/dL (11.7-16.9); MCH 28.5 pg (25.7-33.7); MCHC 34.3 g/dl (32.0-35.9); MEAN CELL VOLUME 83.2 fl (80-96); MEAN PLT VOLUME 7.1 fl (7.5-11.1); PLATELET COUNT 211 K/MM3 (134-434); RBC 4.71 M/mm3 (4.00-5.60); RDW 14.3 % (11.9-15.9); WHITE BLOOD COUNT 4.8 K/mm3 (4.0-10.0)
[2019-11-07 07:00] LABS: BLOOD UREA NITROGEN 19.4 mg/dL (7-18); CALCIUM 8.7 mg/dL (8.5-10.1); CREATININE 1.1 mg/dL (0.55-1.3); MAGNESIUM 2.3 mg/dL (1.8-2.4); POTASSIUM 4.1 mmol/L (3.5-5.1)
[2019-11-07 07:03] LABS: CHOLESTEROL 166 mg/dL (50-200); HDL CHOLESTEROL 30 mg/dL (40-60); LDL CHOLESTEROL (ONLY SJRH) 105 mg/dL (5-100); TRIGLYCERIDES 226 mg/dL (0-150)
--- NOTE | 2019-11-07 09:22 | PN ---
Teaching Attending Note Name of Resident: Enoch Armijo ATTENDING PHYSICIAN STATEMENT I saw and evaluated the patient. I reviewed the resident's note and discussed the case with the resident. I agree with the resident's findings and plan as documented. SUBJECTIVE: Patient is comfortable with no acute distress. Vital Signs Temperature 97.5 F L 11/07/19 06:00 Pulse Rate 74 11/07/19 06:00 Respiratory Rate 20 11/07/19 06:00 Blood Pressure 142/78 11/07/19 06:00 O2 Sat by Pulse Oximetry (%) 99 11/06/19 21:00 GENERAL: The patient is awake, alert, and fully oriented, in no acute distress. HEAD: Normal with no signs of trauma. EYES: PERRL, extraocular movements intact, sclera anicteric, conjunctiva clear. ENT: Ears normal, oropharynx clear without exudates, moist mucous membranes. NECK: Trachea midline, full range of motion, supple. LUNGS: Breath sounds equal, clear to auscultation bilaterally, no wheezes, no crackles, no accessory muscle use. HEART: Regular rate and rhythm, S1, S2 without murmur, rub or gallop. ABDOMEN: Soft, NT,ND, normoactive bowel sounds, no guarding, no rebound, no hepatosplenomegaly, no masses. EXTREMITIES: 2+ pulses, warm, well-perfused, no edema. NEUROLOGICAL: Cranial nerves II through XII grossly intact. Normal speech, gait is stable . PSYCH: Normal mood, normal affect. SKIN: Warm, dry, normal turgor, no rashes or lesions noted CBCD WBC 4.8 K/mm3 (4.0-10.0) 11/07/19 06:00 RBC 4.71 M/mm3 (4.00-5.60) 11/07/19 06:00 Hgb 13.4 GM/dL (11.7-16.9) 11/07/19 06:00 Hct 39.2 % (35.4-49) 11/07/19 06:00 MCV 83.2 fl (80-96) 11/07/19 06:00 MCHC 34.3 g/dl (32.0-35.9) 11/07/19 06:00 RDW 14.3 % (11.9-15.9) 11/07/19 06:00 Plt Count 211 K/MM3 (134-434) 11/07/19 06:00 MPV 7.1 fl (7.5-11.1) L 11/07/19 06:00 CMP Sodium 142 mmol/L (136-145) 11/07/19 06:00 Potassium 4.1 mmol/L (3.5-5.1) 11/07/19 06:00 Chloride 110 mmol/L (98-107) H 11/07/19 06:00 Carbon Dioxide 25 mmol/L (21-32) 11/07/19 06:00 Anion Gap 7 MMOL/L (8-16) L 11/07/19 06:00 BUN 19.4 mg/dL (7-18) H 11/07/19 06:00 Creatinine 1.1 mg/dL (0.55-1.3) 11/07/19 06:00 Random Glucose 95 mg/dL (74-106) 11/07/19 06:00 Calcium 8.7 mg/dL (8.5-10.1) 11/07/19 06:00 Total Bilirubin 0.6 mg/dL (0.2-1) 11/06/19 05:50 AST 15 U/L (15-37) 11/06/19 05:50 ALT 30 U/L (13-61) 11/06/19 05:50 Alkaline Phosphatase 68 U/L (45-117) 11/06/19 05:50 Total Protein 6.8 g/dl (6.4-8.2) 11/06/19 05:50 Albumin 4.0 g/dl (3.4-5.0) 11/06/19 05:50 Current Medications Generic Name Dose Route Start Last Admin Trade Name Freq PRN Reason Stop Dose Admin Amlodipine Besylate 5 mg 11/06/19 10:00 11/06/19 10:20 Norvasc - PO 5 mg DAILY JACKIE Administration Aspirin 325 mg 11/07/19 10:00 Ecotrin - PO DAILY JACKIE Atorvastatin Calcium 40 mg 11/06/19 22:00 11/06/19 21:31 Lipitor - PO 40 mg HS JACKIE Administration Desmopressin Acetate 0.4 mg 11/06/19 14:00 11/07/19 05:33 Ddavp - PO 0.4 mg TID JACKIE Administration Heparin Sodium (Porcine) 5,000 unit 11/06/19 22:00 11/07/19 05:33 Heparin - SQ 5,000 unit TID JACKIE Administration Sodium Chloride 1,000 mls @ 75 mls/hr 11/06/19 19:45 11/06/19 21:43 Normal Saline - IV 11/07/19 14:00 75 mls/hr ASDIR JACKIE Administration Losartan Potassium 100 mg 11/06/19 10:00 11/06/19 10:20 Cozaar - PO 100 mg DAILY JCAKIE Administration Home Medications Medication Instructions Recorded Amlodipine Besylate 5 mg PO DAILY 07/17/19 Desmopressin Acetate [Ddavp] 0.2 mg PO TID 07/17/19 Losartan Potassium 100 mg PO DAILY 07/17/19 Laboratory Tests 11/07/19 06:00 Triglycerides 226 H Cholesterol 166 Total LDL Cholesterol 105 H HDL Cholesterol [address] head: Mild volume loss, ventricular dilatation and chronic microvascular ischemic disease Focal chronic infarct in the right anterior periventricular white matter No gross acute intracranial pathology MRI of the brain: acute infarct is noted within the posterior limb of the right internal capsule adjacent to the genu. echo: mild mr, mild tr, otherwise normal. ASSESSMENT AND PLAN: Patient is a 54yo male with Hx of DI presented with acute change of mental status and as per patient he doubles the dose of desmopressin at nights to 0.4mg since has been going to the bathroom more than usual. # Acute Stroke on aspirin and lipitor now, echo as above, carotid duplex pending result, will get cardio seeing the patient for possible afib. continue to monitor in tele. # Acute mild dehydration nepro/neuro/endocrine on the case # Hx of DI , as per nephro to change the dose to 0.4mg tid of desmopressin. # chronic focal infarct in the right anterior periventricular white matter. DVT Px: SCds, heparin
[2019-11-07] MEDS: amLODIPine BESYLATE 5 MG TABLET (FP) PO SCH (10:00)
[2019-11-07] MEDS ORDERED: ASPIRIN 81 MG CHEWABLE TABLETS PO SCH (10:00)
[2019-11-07] MEDS ORDERED: ASPIRIN 325 MG ENTERIC COATED TABLET (FP) PO SCH (10:00)
[2019-11-07] MEDS: LOSARTAN POTASSIUM 50 MG TABLET (FP) PO SCH (10:00)
[2019-11-07] MEDS: ASPIRIN COATED 81 MG TABLET.EC PO SCH (10:02)
[2019-11-07] MEDS ORDERED: PT OWN MED DRAWER 7, Y5N ONE ×4 (10:35→21:36)
--- NOTE | 2019-11-07 10:38 | PN ---
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 Patient was brought for confusion and disroientation. His desmopressin was increased. Patient denies any head injury, fever , vomiting or hemiparesis. Patient has ct head it is unremarkable. There is chronic microvascular changes. confused resolved. Patient has mri positive for right basal gangalia/IC small lacunar stroke. 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 was brought for transient confusion, now resolved. 2. right mca small lacunar stroke Plan: continue aspirin and statin - speech, pt, echo and carotid ultrasound -? paroxysmal atrial fibrillation on tele, work up as per primary - life style modification and stroke education was discussed Thanking you so much Marc Muse MD
--- NOTE | 2019-11-07 11:19 | CONSULT ---
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 Pt has been tolerating a soft diet and thin liquids since admission. Patient reported this morning, after given 6am meds, he felt like he had heartburn and then vomited bile. He denied coughing on the pill/water or it going down wrong. He reports that he gets heartburnm at home periodically and takes Tums for relief. He has not been seen by GI previously. He does recline at times after meals, drinks 2-3 cups caffeinated coffee daily, cranberry juice , some high fat foods, pizza. r/o GERD/Laryngopharyngeal reflux. Selected Entries 11/05/19 11/06/19 11/06/19 13:05 07:14 10:47 Breakfast Temperature 98.9 F 97.6 F 98.6 F 11/06/19 11/06/19 11/06/19 14:46 18:00 19:49 Breakfast Temperature 98.4 F 98.1 F 97.7 F 11/06/19 11/07/19 11/07/19 22:00 02:00 06:00 Breakfast Temperature 97.8 F 97.7 F 97.5 F L 11/07/19 11/07/19 08:57 09:05 Breakfast NPO Temperature 97.5 F L Laboratory Tests 11/05/19 11/06/19 11/07/19 13:42 05:50 06:00 WBC 5.1 5.3 4.8 History Source: Patient, Family Member (), Medical Record Limitations to Obtaining History: No Limitations - Past Medical History Cardiovascular: Yes: HTN Endocrine: Yes: Diabetes Insipidus - Smoking History Smoking history: Never smoked Have you smoked in the past 12 months: No - Alcohol/Substance Use Hx Alcohol Use: No - Social History Usual Living Arrangement: Yes: With Spouse ADL: Independent 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 History - Admission Reason For Visit: ALTERED MENTAL STATUS - Diagnostics X-ray: Report Reviewed CT Scan: Report Reviewed (ct head chronic microvascular changes) MRI: Report Reviewed ( mri positive for right basal gangalia/IC small lacunar stroke.) - General Mental Status: Alert and Oriented, Awake and Alert, Able to Follow Commands Attention: Intact - Hearing Hearing: Normal Speech Evaluation - Communication Primary Language: M[place] Communication: Yes: Within Normal Limits Oral Expression Ability: Yes: No Impairment - Speech Production Able to Make Needs Known: Yes: WNL Intelligibility: Yes: WNL - Speech Characteristics Voice Loudness: Normal Voice Pitch: Yes: Normal Voice Phonatory-based Quality: Yes: Normal Speech Pattern: Normal Speech Clarity: < 100% Nasal Resonance: Normal Articulation: Yes: Precise Rate of Speech: Intact - Language/Auditory Comprehension Follows: Yes: 2 Stage Simple Commands Observation: Able to respond to yes/no queries: Yes, Yes/No Confusion: No, Comprehends Conversational Speech: Yes - Language/Verbal Expression Able to Respond to Simple Queries: Yes: WNL Able to Communicate Wants and Needs: Yes: WNL Functional Communication Status: Yes: WNL - 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 Memory: Yes: WNL Short Term Memory: Yes: WNL - Swallow Evaluation/Bedside Assessment Current Nutritional Intake: NPO Oral Secretions: Yes: WFL Dentition: Yes: Adequate Facial Symmetry at Rest: Facial Droop Left Facial Symmetry on Retraction: Symmetrical Sensation: Normal Against Resistance Opening: Normal Against Resistance Closing: Normal Pucker Lips: Normal Smile: Normal Lingual Movement: Normal, Symmetric Lingual Speed of Movement: Normal Lingual Movement Strgth Against Opposition: Normal Lingual Movement Characteristics: Normal Velopharyngeal Movement: Normal Laryngeal Elevation: WFL Laryngeal Movement: Able to Palpate Needs Assistance: Yes Bolus Size: WFL Chewing: WFL Oral Prep Time: WFL A-P Transit: WFL Timing of Swallow: WFL Coughing/Throat Clear: Yes (Mostly (-) 3 oz water) Change in Voice: Yes (dysphonic briefly after drinking water and 1 brief throat clear) Recommendations - Speech Evaluation, Impression/Plan Impression: Language, speech, cognition intact. Swallowing seems ok- soft signs ? of dysphonia/brief throat clear? Pt reports intermittent gastroesophageal reflux. Educated on reducing caffiene, HOB elevated x 2 hours after meals and no PO intake within 3 hours of bedtime. - Dysphagia Impressions/Plan Dysphagia Impressions: Minimal Impairment *Silent aspiration: cannot be R/O at bedside Dysphagia Treatment Plan: OOB for meals, OOB for 1 h. after meals Recommendations: Modified Barium Swallow (If cough, congestion, downgrade diet and MBS) - Recommendations Diet Consistency: Regular (soft) Medication Administration: Whole with water Liquids: Thin Liquids
--- NOTE | 2019-11-07 11:57 | ECHO ---
Name: RAND BECKFORD Exam:Adult Echocardiogram Study Date: 11/07/2019 11:09 AM Age: 54 yrs Reason For Study: Stroke Height: 66 in Weight: 256 lb BSA: 2.2 m2 MMode/2D Measurements & Calculations IVSd: 1.0 cm Ao root diam: 3.0 cm LVIDd: 4.5 cm LA dimension: 3.6 cm LVIDs: 2.9 cm ACS: 2.2 cm LVPWd: 1.5 cm EDV(Teich): 90.2 ml LVOT diam: 2.2 cm ESV(Teich): 32.0 ml RV S Acosta: 12.7 cm/sec Doppler Measurements & Calculations MV E max acosta: 67.4 cm/sec MV A max acosta: 63.5 cm/sec MV dec slope: 306.1 cm/sec2 MV E/A: 1.1 Ao V2 max: 110.5 cm/sec LV V1 max P.2 mmHg Ao max P.9 mmHg LV V1 mean P.2 mmHg Ao V2 mean: 79.1 cm/sec LV V1 max: 101.9 cm/sec Ao mean P.9 mmHg LV V1 mean: 69.4 cm/sec Ao V2 VTI: 25.6 cm LV V1 VTI: 22.7 cm IVELISSE(I,D): 3.3 cm2 IVELISSE(V,D): 3.5 cm2 MR max acosta: 188.2 cm/sec SV(LVOT): 85.7 ml MR max P.2 mmHg TR max acosta: 165.4 cm/sec PA V2 max: 66.0 cm/sec TR max P.4 mmHg PA max P.7 mmHg Med Peak E' Acosta: 9.9 cm/sec Med E/e': 6.8 Lat Peak E' Acosta: 11.5 cm/sec Lat E/e': 5.8 Procedure The study was technically difficult with many images being suboptimal in quality. Left Ventricle Left ventricular systolic function is normal. Left ventricular systolic function is grossly normal. L eft Ventricular Filling pattern is normal for age. Regional wall motion abnormalities cannot be excluded due to limited visualization. Right Ventricle The right ventricle is grossly normal size. The right ventricular systolic function is grossly normal . Atria Normal left and right atrial size and function. Mitral Valve The mitral valve is grossly normal. There is no mitral valve stenosis. There is mild mitral regurgita tion. Tricuspid Valve The tricuspid valve is normal in structure and function. There is mild tricuspid regurgitation. Right ventricular systolic pressure is normal. Aortic Valve The aortic valve opens well. The aortic valve is not well visualized. No hemodynamically significant valvular aortic stenosis. No aortic regurgitation is present. Pulmonic Valve The pulmonic valve is not well seen, but is grossly normal. There is no pulmonic valvular stenosis. T here is no pulmonic valvular regurgitation. Great Vessels The aortic root is normal size. Pericardium/Pleura There is no pericardial effusion. Interpretation Summary The study was technically difficult with many images being suboptimal in quality. Left ventricular systolic function is normal. Left ventricular systolic function is grossly normal. There is mild mitral regurgitation. There is mild tricuspid regurgitation. Right ventricular systolic pressure is normal. The aortic valve opens well. The aortic valve is not well visualized. There is no pericardial effusion. MD Dailey *Alli 11/07/2019 11:57 AM
--- NOTE | 2019-11-07 14:34 | CON.CARD ---
Consult Consult Specialty:: Cardiology Referred by:: Hospitalist Medicine - History of Present Illness Chief Complaint: Altered mental status History of Present Illness: 54 year old male history of Pinealoma s/p radiation during his teens, Diabetes, insipidus, HTN brought in for confusion and disroientation since resolved. His desmopressin was increased. Patient denies any head injury, fever , vomiting or hemiparesis, chest pain, palpitations, dyspnea, orthopnea, PND or LE edema. Ct head shows old stroke and chronic microvascular changes. Brain mri positive for right basal gangalia/IC small lacunar stroke. He denies any difficulty with speaking or motor weakness. 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 Home Medications - Allergies Allergies/Adverse Reactions: Allergies Allergy/AdvReac Type Severity Reaction Status Date / Time No Known Allergies Allergy Verified 11/05/19 13:09 - Home Medications Home Medications: Ambulatory Orders Amlodipine Besylate 5 mg PO DAILY 07/17/19 Losartan Potassium 100 mg PO DAILY 07/17/19 Desmopressin Acetate [Desmopressin Acetate -] 0.4 mg PO TID 30 Days #90 tablet 11/06/19 Review of Systems - Review of Systems Neurological: reports: Confusion Vital Signs: Vital Signs Temperature 98.4 F 11/07/19 13:00 Pulse Rate 70 11/07/19 13:00 Respiratory Rate 18 11/07/19 13:00 Blood Pressure 133/83 11/07/19 13:00 O2 Sat by Pulse Oximetry (%) 98 11/07/19 09:00 Constitutional: Yes: No Distress, Calm Neck: Yes: Supple Respiratory: Yes: Regular, CTA Bilaterally Gastrointestinal: Yes: Normal Bowel Sounds, Soft Cardiovascular: Yes: Regular Rate and Rhythm JVD: No Carotid Bruit: No Heart Sounds: Yes: S1, S2 Murmur: Yes: Systolic Murmur, Grade 1 Peripheral Pulses WNL: No - Other Data Labs, Other Data: CBC, BMP 11/07/19 06:00 11/07/19 06:00 NSR @ 73 Tele: No PAF Ejection Fraction %: LVEF > or = 40 % Imaging - Results Chest X-ray: Report Reviewed (NAD) Problem List - Problems (1) Hypertension Code(s): I10 - ESSENTIAL (PRIMARY) HYPERTENSION Qualifiers: Hypertension type: essential hypertension Qualified Code(s): I10 - Essential (primary) hypertension (2) Acute lacunar stroke Code(s): I63.81 - OTHER CEREB INFRC DUE TO OCCLS OR STENOSIS OF SMALL ARTERY (3) Diabetes insipidus Code(s): E23.2 - DIABETES INSIPIDUS (4) AMS (altered mental status) Code(s): R41.82 - ALTERED MENTAL STATUS, UNSPECIFIED Qualifiers: Altered mental status type: unspecified Qualified Code(s): R41.82 - Altered mental status, unspecified Assessment/Plan CT head: Mild volume loss, ventricular dilatation and chronic microvascular ischemic disease Focal chronic infarct in the right anterior periventricular white matter No gross acute intracranial pathology MRI of the brain: Right mca small lacunar stroke Echo: mild mr, mild tr, otherwise normal. EEG Normal 1. Altered mental status referable to acute lacunar stroke 2. HTN 3. Diabetes insipidis P:1. F/u holter and surveillance system monitor to r/o PAF. If unrevealing may benefit from longer term arrhythmia monitoring 2. ASA 81 qd, losartan 100 qd, Norvasc 5 qd and Lipitor 40 qd 3. Cont with desmopressin 0.4 TID with monitor Na 4. Thank you for consultative opportunity
--- NOTE | 2019-11-07 15:17 | PN ---
Progress Note, Physician History of Present Illness: Pt seen and examined at bedside. He is awake and appears comfortable. He denies shortness of breath. - Current Medication List Current Medications: Active Medications Amlodipine Besylate (Norvasc -) 5 mg PO DAILY [facility] Last Admin: 11/07/19 10:00 Dose: 5 mg Aspirin (Ecotrin -) 81 mg PO DAILY [facility] Last Admin: 11/07/19 10:02 Dose: 81 mg Atorvastatin Calcium (Lipitor -) 40 mg PO HS JACKIE Last Admin: 11/06/19 21:31 Dose: 40 mg Desmopressin Acetate (Ddavp -) 0.4 mg PO TID [facility] Last Admin: 11/07/19 14:28 Dose: 0.4 mg Heparin Sodium (Porcine) (Heparin -) 5,000 unit SQ TID [facility] Last Admin: 11/07/19 14:28 Dose: 5,000 unit Losartan Potassium (Cozaar -) 100 mg PO DAILY [facility] Last Admin: 11/07/19 10:00 Dose: 100 mg - Objective Vital Signs: Vital Signs Temperature 98.4 F 11/07/19 13:00 Pulse Rate 70 11/07/19 13:00 Respiratory Rate 18 11/07/19 13:00 Blood Pressure 133/83 11/07/19 13:00 O2 Sat by Pulse Oximetry (%) 98 11/07/19 09:00 Constitutional: Yes: Calm Eyes: Yes: Conjunctiva Clear HENT: Yes: Atraumatic Neck: Yes: Supple Cardiovascular: Yes: S1, S2 Respiratory: Yes: CTA Bilaterally Gastrointestinal: Yes: Soft Genitourinary: Yes: WNL Musculoskeletal: Yes: WNL Edema: No Neurological: Yes: Oriented Psychiatric: Yes: Oriented Labs: CBC, BMP 11/07/19 06:00 11/07/19 06:00 Assessment/Plan Current Medications Generic Name Dose Route Start Last Admin Trade Name Freq PRN Reason Stop Dose Admin Amlodipine Besylate 5 mg 11/06/19 10:00 11/07/19 10:00 Norvasc - PO 5 mg DAILY JACKIE Administration Aspirin 81 mg 11/07/19 10:00 11/07/19 10:02 Ecotrin - PO 81 mg DAILY JACKIE Administration Atorvastatin Calcium 40 mg 11/06/19 22:00 11/06/19 21:31 Lipitor - PO 40 mg HS JACKIE Administration Desmopressin Acetate 0.4 mg 11/06/19 14:00 11/07/19 14:28 Ddavp - PO 0.4 mg TID JACKIE Administration Heparin Sodium (Porcine) 5,000 unit 11/06/19 22:00 11/07/19 14:28 Heparin - SQ 5,000 unit TID JACKIE Administration Losartan Potassium 100 mg 11/06/19 10:00 11/07/19 10:00 Cozaar - PO 100 mg DAILY JACKIE Administration Impression 1. diabetes insipidus 2. htn 3. change in mental status/confusion 4. CVA Plan - sodium is stable - cont with desmopressin 0.4 TID - monitor sodium daily - monitor bp - neuro follow up - cont desmopressin as 0.4 q 8 hrs - monitor sodium level - discussed with endocrine - discussed with medical team - sodium level is stable - bp stable
--- NOTE | 2019-11-07 16:16 | PN ---
Physical Exam: SUBJECTIVE: Patient seen and examined O/N: MRI reading of acute infarct of R-basal ganglia. Neurology recommend ASA and Statin, no further intervention as deficit was minimal O/N Tele: no alarms noted No complaints OBJECTIVE: Vital Signs Period Temp Pulse Resp BP Sys/Harmon Pulse Ox Last 24 Hr 97.5 F-98.4 F 70-87 16-20 133-150/72-90 98-99 GENERAL: The patient is awake, alert, and fully oriented, in no acute distress. Mildly lethargic-appearing HEAD: Normal with no signs of trauma. EYES: PERRL, extraocular movements intact, sclera anicteric, conjunctiva clear. No ptosis. ENT: Ears normal, nares patent, moist mucous membranes. NECK: Trachea midline, full range of motion, supple. LUNGS: Breath sounds equal, clear to auscultation bilaterally, no wheezes, no crackles, no accessory muscle use. HEART: Regular rate and rhythm, S1, S2 without murmur, rub or gallop. ABDOMEN: Soft, nontender, nondistended, normoactive bowel sounds, no guarding, no rebound, no hepatosplenomegaly, no masses. EXTREMITIES: 2+ pulses, warm, well-perfused, no edema. NEUROLOGICAL: Cranial nerves II through XII grossly intact. Normal speech, normal gait observed. NIHSS 1(Left-sided nasolabial effacement) PSYCH: Normal mood, normal affect. SKIN: Warm, dry, normal turgor, no rashes or lesions noted Laboratory Results - last 24 hr 11/06/19 11/07/19 11/07/19 17:34 06:00 06:00 WBC 4.8 RBC 4.71 Hgb 13.4 Hct 39.2 MCV 83.2 MCH 28.5 MCHC 34.3 RDW 14.3 Plt Count 211 MPV 7.1 L Sodium 144 142 Potassium 4.1 4.1 Chloride 110 H 110 H Carbon Dioxide 29 25 Anion Gap 5 L 7 L BUN 18.9 H 19.4 H Creatinine 1.3 1.1 Est GFR (CKD-EPI)AfAm 71.19 87.13 Est GFR (CKD-EPI)NonAf 61.43 75.17 Random Glucose 99 95 Calcium 9.2 8.7 Phosphorus 4.0 Magnesium 2.3 Triglycerides Cholesterol Total LDL Cholesterol HDL Cholesterol 11/07/19 06:00 WBC RBC Hgb Hct MCV MCH MCHC RDW Plt Count MPV Sodium Potassium Chloride Carbon Dioxide Anion Gap BUN Creatinine Est GFR (CKD-EPI)AfAm Est GFR (CKD-EPI)NonAf Random Glucose Calcium Phosphorus Magnesium Triglycerides 226 H Cholesterol 166 Total LDL Cholesterol 105 H HDL Cholesterol 30 L Active Medications Generic Name Dose Route Start Last Admin Trade Name Freq PRN Reason Stop Dose Admin Amlodipine Besylate 5 mg 11/06/19 10:00 11/07/19 10:00 Norvasc - PO 5 mg DAILY JACKIE Administration Aspirin 81 mg 11/07/19 10:00 11/07/19 10:02 Ecotrin - PO 81 mg DAILY JACKIE Administration Atorvastatin Calcium 40 mg 11/06/19 22:00 11/06/19 21:31 Lipitor - PO 40 mg HS JACKIE Administration Desmopressin Acetate 0.4 mg 11/07/19 22:30 Ddavp - PO Q8H JACKIE Heparin Sodium (Porcine) 5,000 unit 11/06/19 22:00 11/07/19 14:28 Heparin - SQ 5,000 unit TID JACKIE Administration Losartan Potassium 100 mg 11/06/19 10:00 11/07/19 10:00 Cozaar - PO 100 mg DAILY JACKIE Administration ASSESSMENT/PLAN: 54 year old male with history of pinealoma (s/p radiation at 15yo), diabetes insipidus, hypertension, admitted for acute metabolic encephalopathy. Patient was expressing confusion, mild short-term memory loss. Has been endorsing frequent urination. Has mild Left-sided nasolabial effacement. Neuro rec ASA + statin. Pt's insisting on hearing about an episode of documented Afib. No afib found on documentation. Neuro consulted Cardio. Echo normal. US carotid normal. Cardio([facility]) placed pt on Holter. S&S rec soft diet with thin liquids. Walked 400ft w/ PT. #Acute metabolic encephalopathy --ischemia CVA > CT Head(11/05/19): mild volume loss, ventricular dilation, chronic microvascular changes with chronic infarct right anterior periventricular white matter. > EEG(11/06/19) --no abnormalities > MRI Brain(11/06/19) --acute infarct of posterior limb of Right internal capsule > Echo(11/07/19) --suboptimal quality, normal LV function > Carotid US(11/07/19) --no significant stenosis - NIHSS 0(11/05/19) - NIHSS 1(Left-sided nasolabial effacement)(11/06/19) - Neuro Consult(Dr. Muse) --no indication for spinal tap --unlikley to be status epilepticus, meningitis --rec carotid US, echo --normal --rec cardio consult - S&S: soft diet w/ thin liquids - PT: 400ft, no outpt needs - Fall precautions #?Atrial Fibrillation --self-reported, no documented tele alarms - Cardio Consult([facility]): --cw ASA and statin --pt on Holter #Diabetes insipidus - Nephro Consult(Dr Benton): -- Desmopressin 0.4mg q8h -- fu PM Na - Endocrinology consult (Dr. Quiroz): --recs pending #Dyslipidemia > T cholesterol 166, LDL 105, TG 266 - cw statin #chronic essential HTN -Continue home medications; Losartan 100mg PO daily, Amlodipine 5mg PO daily #FEN - No IV fluids indicated - Follow BMP - Sodium controlled diet #Prophylaxis -Heparin 5000units subq TID Disposition -Admit to Telemetry floor Visit type - Emergency Visit Emergency Visit: No - New Patient This patient is new to me today: No - Critical Care Critical Care patient: No - Discharge Referral Referred to [facility] Med P.C.: No ATTENDING PHYSICIAN STATEMENT I saw and evaluated the patient. I reviewed the resident's note and discussed the case with the resident. I agree with the resident's findings and plan as documented. SUBJECTIVE: OBJECTIVE: ASSESSMENT AND PLAN:
[2019-11-07 17:39] LABS: POTASSIUM 4.1 mmol/L (3.5-5.1)
[2019-11-07] MEDS: ATORVASTATIN CA 40 MG TABLET (FP) PO SCH (21:34)
[2019-11-08] MEDS ORDERED: PT OWN MED DRAWER 7, Y5N ONE ×2 (05:13→21:34)
[2019-11-08 06:22] LABS: HEMATOCRIT 38.8 % (35.4-49); HEMOGLOBIN 13.4 GM/dL (11.7-16.9); MCH 28.6 pg (25.7-33.7); MCHC 34.5 g/dl (32.0-35.9); MEAN CELL VOLUME 82.8 fl (80-96); MEAN PLT VOLUME 7.2 fl (7.5-11.1); PLATELET COUNT 189 K/MM3 (134-434); RBC 4.68 M/mm3 (4.00-5.60); RDW 14.1 % (11.9-15.9); WHITE BLOOD COUNT 4.5 K/mm3 (4.0-10.0)
[2019-11-08 06:47] LABS: BLOOD UREA NITROGEN 17.9 mg/dL (7-18); CALCIUM 8.4 mg/dL (8.5-10.1); MAGNESIUM 2.1 mg/dL (1.8-2.4); PHOSPHOROUS 3.6 mg/dL (2.5-4.9); POTASSIUM 4.2 mmol/L (3.5-5.1)
[2019-11-08] MEDS: DESMOPRESSIN ACETATE 0.2 MG TABLET PO SCH ×3 (06:48→22:07)
[2019-11-08] MEDS: HEPARIN NA (PORCINE) 5,000 UNITS/ML 1ML VIAL SQ SCH ×3 (06:48→22:07)
[2019-11-08] MEDS: LOSARTAN POTASSIUM 50 MG TABLET (FP) PO SCH (09:56)
[2019-11-08] MEDS: ASPIRIN COATED 81 MG TABLET.EC PO SCH (09:57)
[2019-11-08] MEDS: amLODIPine BESYLATE 5 MG TABLET (FP) PO SCH (09:57)
--- NOTE | 2019-11-08 10:01 | PN ---
Progress Note, Physician History of Present Illness: No PAF on telemetry thus far, sensorium has cleared to baseline. - Current Medication List Current Medications: Active Medications Amlodipine Besylate (Norvasc -) 5 mg PO DAILY [facility] Last Admin: 11/08/19 09:57 Dose: 5 mg Aspirin (Ecotrin -) 81 mg PO DAILY [facility] Last Admin: 11/08/19 09:57 Dose: 81 mg Atorvastatin Calcium (Lipitor -) 40 mg PO HS [facility] Last Admin: 11/07/19 21:34 Dose: 40 mg Desmopressin Acetate (Ddavp -) 0.4 mg PO Q8H [facility] Last Admin: 11/08/19 06:48 Dose: 0.4 mg Heparin Sodium (Porcine) (Heparin -) 5,000 unit SQ TID [facility] Last Admin: 11/08/19 06:48 Dose: 5,000 unit Losartan Potassium (Cozaar -) 100 mg PO DAILY [facility] Last Admin: 11/08/19 09:56 Dose: 100 mg - Objective Vital Signs: Vital Signs Temperature 98.1 F 11/08/19 06:00 Pulse Rate 70 11/08/19 06:00 Respiratory Rate 16 11/08/19 06:00 Blood Pressure 144/88 11/08/19 06:00 O2 Sat by Pulse Oximetry (%) 98 11/07/19 21:00 Constitutional: Yes: No Distress, Calm Neck: Yes: Supple Cardiovascular: Yes: Regular Rate and Rhythm Respiratory: Yes: Regular, CTA Bilaterally Gastrointestinal: Yes: Normal Bowel Sounds, Soft, Abdomen, Obese Edema: No Labs: CBC, BMP 11/08/19 05:57 11/08/19 05:57 - ....Imaging EKG: Report Reviewed (Tele: NSR, no PAF) Problem List - Problems (1) Hypertension Code(s): I10 - ESSENTIAL (PRIMARY) HYPERTENSION Qualifiers: Hypertension type: essential hypertension Qualified Code(s): I10 - Essential (primary) hypertension (2) Acute lacunar stroke Code(s): I63.81 - OTHER CEREB INFRC DUE TO OCCLS OR STENOSIS OF SMALL ARTERY (3) Diabetes insipidus Code(s): E23.2 - DIABETES INSIPIDUS (4) AMS (altered mental status) Code(s): R41.82 - ALTERED MENTAL STATUS, UNSPECIFIED Qualifiers: Altered mental status type: unspecified Qualified Code(s): R41.82 - Altered mental status, unspecified Assessment/Plan CT head: Mild volume loss, ventricular dilatation and chronic microvascular ischemic disease Focal chronic infarct in the right anterior periventricular white matter No gross acute intracranial pathology MRI of the brain: Right mca small lacunar stroke Echo: mild mr, mild tr, otherwise normal. EEG Normal 1. Altered mental status referable to acute lacunar stroke resolved 2. HTN 3. Diabetes insipidis P:1. 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 If unrevealing may benefit from longer term arrhythmia monitoring 2. ASA 81 qd, losartan 100 qd, Norvasc 5 qd and Lipitor 40 qd 3. Cont with desmopressin 0.4 TID with monitor Na
--- NOTE | 2019-11-08 11:07 | PN ---
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 Patient was brought for confusion and disroientation. His desmopressin was increased. Patient denies any head injury, fever , vomiting or hemiparesis. Patient has ct head it is unremarkable. There is chronic microvascular changes. confused resolved. Patient has mri positive for right basal gangalia/IC small lacunar stroke. 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 was brought for transient confusion, now resolved. 2. right mca small lacunar stroke Plan: continue aspirin and statin - speech, pt consult apprecaited cardiology consult appreciated no evidence of atrial fibrillation carotid ultrasound is normal - life style modification and stroke education was discussed again he can be discharged home from neurological point of view Thanking you so much Marc Muse MD
--- NOTE | 2019-11-08 16:42 | PN ---
Progress Note (short form) - Note Progress Note: Patient is feeling better with no acute distress. no changes. Vital Signs Temperature 98.6 F 11/08/19 14:00 Pulse Rate 66 11/08/19 14:00 Respiratory Rate 16 11/08/19 14:00 Blood Pressure 133/77 11/08/19 14:00 O2 Sat by Pulse Oximetry (%) 99 11/08/19 09:00 GENERAL: The patient is awake, alert, and fully oriented, in no acute distress. HEAD: Normal with no signs of trauma. EYES: PERRL, extraocular movements intact, sclera anicteric, conjunctiva clear. ENT: Ears normal, oropharynx clear without exudates, moist mucous membranes. NECK: Trachea midline, full range of motion, supple. LUNGS: Breath sounds equal, clear to auscultation bilaterally, no wheezes, no crackles, no accessory muscle use. HEART: Regular rate and rhythm, S1, S2 without murmur, rub or gallop. ABDOMEN: Soft, NT,ND, normoactive bowel sounds, no guarding, no rebound, no hepatosplenomegaly, no masses. EXTREMITIES: 2+ pulses, warm, well-perfused, no edema. NEUROLOGICAL: Cranial nerves II through XII grossly intact. Normal speech, gait is stable . PSYCH: Normal mood, normal affect. SKIN: Warm, dry, normal turgor, no rashes or lesions noted CBCD WBC 4.5 K/mm3 (4.0-10.0) 11/08/19 05:57 RBC 4.68 M/mm3 (4.00-5.60) 11/08/19 05:57 Hgb 13.4 GM/dL (11.7-16.9) 11/08/19 05:57 Hct 38.8 % (35.4-49) 11/08/19 05:57 MCV 82.8 fl (80-96) 11/08/19 05:57 MCHC 34.5 g/dl (32.0-35.9) 11/08/19 05:57 RDW 14.1 % (11.9-15.9) 11/08/19 05:57 Plt Count 189 K/MM3 (134-434) 11/08/19 05:57 MPV 7.2 fl (7.5-11.1) L 11/08/19 05:57 CMP Sodium 139 mmol/L (136-145) 11/08/19 05:57 Potassium 4.2 mmol/L (3.5-5.1) 11/08/19 05:57 Chloride 105 mmol/L (98-107) 11/08/19 05:57 Carbon Dioxide 28 mmol/L (21-32) 11/08/19 05:57 Anion Gap 6 MMOL/L (8-16) L 11/08/19 05:57 BUN 17.9 mg/dL (7-18) 11/08/19 05:57 Creatinine 1.0 mg/dL (0.55-1.3) 11/08/19 05:57 Random Glucose 97 mg/dL (74-106) 11/08/19 05:57 Calcium 8.4 mg/dL (8.5-10.1) L 11/08/19 05:57 Total Bilirubin 0.6 mg/dL (0.2-1) 11/06/19 05:50 AST 15 U/L (15-37) 11/06/19 05:50 ALT 30 U/L (13-61) 11/06/19 05:50 Alkaline Phosphatase 68 U/L (45-117) 11/06/19 05:50 Total Protein 6.8 g/dl (6.4-8.2) 11/06/19 05:50 Albumin 4.0 g/dl (3.4-5.0) 11/06/19 05:50 Current Medications Generic Name Dose Route Start Last Admin Trade Name Yordyq PRN Reason Stop Dose Admin Amlodipine Besylate 5 mg 11/06/19 10:00 11/08/19 09:57 Norvasc - PO 5 mg DAILY JACKIE Administration Aspirin 81 mg 11/07/19 10:00 11/08/19 09:57 Ecotrin - PO 81 mg DAILY JACKIE Administration Atorvastatin Calcium 40 mg 11/06/19 22:00 11/07/19 21:34 Lipitor - PO 40 mg HS JACKIE Administration Desmopressin Acetate 0.4 mg 11/07/19 22:00 11/08/19 13:00 Ddavp - PO 0.4 mg Q8H JACKIE Administration Heparin Sodium (Porcine) 5,000 unit 11/06/19 22:00 11/08/19 13:00 Heparin - SQ 5,000 unit TID JACKIE Administration Losartan Potassium 100 mg 11/06/19 10:00 11/08/19 09:56 Cozaar - PO 100 mg DAILY JACKIE Administration Home Medications Medication Instructions Recorded Amlodipine Besylate 5 mg PO DAILY 07/17/19 Desmopressin Acetate [Ddavp] 0.2 mg PO TID 07/17/19 Losartan Potassium 100 mg PO DAILY 07/17/19 Laboratory Tests 11/07/19 06:00 Triglycerides 226 H Cholesterol 166 Total LDL Cholesterol 105 H HDL Cholesterol [address] head: Mild volume loss, ventricular dilatation and chronic microvascular ischemic disease Focal chronic infarct in the right anterior periventricular white matter No gross acute intracranial pathology MRI of the brain: acute infarct is noted within the posterior limb of the right internal capsule adjacent to the genu. echo: mild mr, mild tr, otherwise normal. ASSESSMENT AND PLAN: Patient is a 54yo male with Hx of DI presented with acute change of mental status and as per patient he doubles the dose of desmopressin at nights to 0.4mg since has been going to the bathroom more than usual. # Acute Stroke on aspirin and lipitor now, echo as above, carotid duplex pending result, will get cardio seeing the patient for possible afib. continue to monitor in tele. Patient is on holter monitor.will continue to monitor for another 24hr. # Acute mild dehydration nepro/neuro/endocrine on the case # Hx of DI , as per nephro to change the dose to 0.4mg tid of desmopressin. # chronic focal infarct in the right anterior periventricular white matter. #Dyslipidemia: on liptor continue DVT Px: SCds, heparin Visit type - Emergency Visit Emergency Visit: Yes ED Registration Date: 11/05/19 Care time: The patient presented to the Emergency Department on the above date and was hospitalized for further evaluation of their emergent condition. - New Patient This patient is new to me today: No - Critical Care Critical Care patient: No - Discharge Referral Referred to [facility] Med P.C.: No
--- NOTE | 2019-11-08 18:10 | PN ---
Progress Note (short form) - Note Progress Note: 1. diabetes insipidus 2. htn 3. change in mental status/confusion 4. CVA Current Medications Amlodipine Besylate (Norvasc -) 5 mg PO DAILY [facility] Last Admin: 11/08/19 09:57 Dose: 5 mg Aspirin (Ecotrin -) 81 mg PO DAILY [facility] Last Admin: 11/08/19 09:57 Dose: 81 mg Atorvastatin Calcium (Lipitor -) 40 mg PO HS [facility] Last Admin: 11/07/19 21:34 Dose: 40 mg Desmopressin Acetate (Ddavp -) 0.4 mg PO Q8H [facility] Last Admin: 11/08/19 13:00 Dose: 0.4 mg Heparin Sodium (Porcine) (Heparin -) 5,000 unit SQ TID [facility] Last Admin: 11/08/19 13:00 Dose: 5,000 unit Losartan Potassium (Cozaar -) 100 mg PO DAILY [facility] Last Admin: 11/08/19 09:56 Dose: 100 mg Last Vital Signs Temp Pulse Resp BP Pulse Ox 98.6 F 66 16 133/77 99 11/08/19 14:00 11/08/19 14:00 11/08/19 14:00 11/08/19 14:00 11/08/19 09:00 alert in nad Lungs clear Heart reg Abd soft nontender CBC, BMP 11/08/19 05:57 11/08/19 05:57 IMP- diabetes insipidus stable on desmo
[2019-11-08] MEDS: ATORVASTATIN CA 40 MG TABLET (FP) PO SCH (22:07)
[2019-11-09] MEDS: DESMOPRESSIN ACETATE 0.2 MG TABLET PO SCH ×3 (05:40→21:08)
[2019-11-09] MEDS: HEPARIN NA (PORCINE) 5,000 UNITS/ML 1ML VIAL SQ SCH ×3 (05:40→21:08)
[2019-11-09] MEDS ORDERED: PNEUMOC 13-VAL CONJ-DIP CRM/PF 0.5 ML DISP.SYRIN IM ONE (08:06)
[2019-11-09] MEDS ORDERED: PNEUMOCOCCAL 23 VACCINE 0.5 ML VIAL IM ONE (08:15)
[2019-11-09] MEDS: amLODIPine BESYLATE 5 MG TABLET (FP) PO SCH (10:31)
[2019-11-09] MEDS: ASPIRIN COATED 81 MG TABLET.EC PO SCH (10:31)
[2019-11-09] MEDS: LOSARTAN POTASSIUM 50 MG TABLET (FP) PO SCH (10:31)
[2019-11-09] MEDS: POLYETHYLENE GLYCOL 3350 119 GM BTL PO SCH ×2 (10:32→21:08)
--- NOTE | 2019-11-09 12:49 | PN ---
Physical Exam: SUBJECTIVE: Patient seen and examined at bedside. No events overnight. Patient endorses constipation; last BM was 4 days ago, which is abnormal for him. OBJECTIVE: Vital Signs Period Temp Pulse Resp BP Sys/Harmon Pulse Ox Last 24 Hr 97.5 F-98.6 F 62-80 16-20 124-144/73-82 97 GENERAL: The patient is awake, alert, and fully oriented, in no acute distress. NECK: Trachea midline, full range of motion, supple. LUNGS: Breath sounds equal, clear to auscultation bilaterally, no wheezes, no crackles, no accessory muscle use. HEART: Regular rate and rhythm, S1, S2 without murmur, rub or gallop. ABDOMEN: Soft, nontender, nondistended, normoactive bowel sounds, no guarding, no rebound, no hepatosplenomegaly, no masses. EXTREMITIES: 2+ pulses, warm, well-perfused, no edema. NEUROLOGICAL: Cranial nerves II through XII grossly intact. Normal speech, gait not observed. Active Medications Generic Name Dose Route Start Last Admin Trade Name Pavel PRN Reason Stop Dose Admin Amlodipine Besylate 5 mg 11/06/19 10:00 11/09/19 10:31 Norvasc - PO 5 mg DAILY JACKIE Administration Aspirin 81 mg 11/07/19 10:00 11/09/19 10:31 Ecotrin - PO 81 mg DAILY JACKIE Administration Atorvastatin Calcium 40 mg 11/06/19 22:00 11/08/19 22:07 Lipitor - PO 40 mg HS JACKIE Administration Desmopressin Acetate 0.4 mg 11/07/19 22:00 11/09/19 05:40 Ddavp - PO 0.4 mg Q8H JACKIE Administration Heparin Sodium (Porcine) 5,000 unit 11/06/19 22:00 11/09/19 05:40 Heparin - SQ 5,000 unit TID JACKIE Administration Losartan Potassium 100 mg 11/06/19 10:00 11/09/19 10:31 Cozaar - PO 100 mg DAILY JACKIE Administration Polyethylene Glycol 17 gm 11/09/19 10:30 11/09/19 10:32 Miralax (For Daily Use) - PO 17 gm BID JACKIE Administration ASSESSMENT/PLAN: 54 year old male with history of pinealoma (s/p radiation at 15yo), diabetes insipidus, hypertension, admitted for AMS. #Acute metabolic encephalopathy --ischemia CVA -CT Head(11/05/19): mild volume loss, ventricular dilation, chronic microvascular changes with chronic infarct right anterior periventricular white matter. -MRI Brain(11/06/19) --acute infarct of posterior limb of Right internal capsule -currently on ASA and Lipitor # possible paroxsysmal Atrial Fibrillation - Cardio Consult([facility]): -cw ASA and statin -pt on Holter #Diabetes insipidus -Nephro Consult(Dr Benton): -Endocrinology consult (Dr. Quiroz): -desmopressin dosing as per the above specialists #Dyslipidemia -cw statin #chronic essential HTN -Continue home medications; Losartan 100mg PO daily, Amlodipine 5mg PO daily #FEN -No IV fluids indicated -Follow BMP -Sodium controlled diet #Prophylaxis -Heparin 5000units subq TID Disposition -Admit to Telemetry floor -Will discuss w/ cardio regarding DC planning Visit type - Emergency Visit Emergency Visit: Yes ED Registration Date: 11/05/19 Care time: The patient presented to the Emergency Department on the above date and was hospitalized for further evaluation of their emergent condition. - New Patient This patient is new to me today: Yes Date on this admission: 11/09/19 - Critical Care Critical Care patient: No ATTENDING PHYSICIAN STATEMENT I saw and evaluated the patient. I reviewed the resident's note and discussed the case with the resident. I agree with the resident's findings and plan as documented. SUBJECTIVE: OBJECTIVE: ASSESSMENT AND PLAN:
--- NOTE | 2019-11-09 13:34 | PN ---
Teaching Attending Note Name of Resident: Jorge Beverly ATTENDING PHYSICIAN STATEMENT I saw and evaluated the patient. I reviewed the resident's note and discussed the case with the resident. I agree with the resident's findings and plan as documented. SUBJECTIVE: Patient has no new complains today , continue holter monitor. Vital Signs Temperature 98.1 F 11/09/19 05:46 Pulse Rate 62 11/09/19 05:46 Respiratory Rate 18 11/09/19 05:46 Blood Pressure 144/82 11/09/19 05:46 O2 Sat by Pulse Oximetry (%) 97 11/08/19 21:00 GENERAL: The patient is awake, alert, and fully oriented, in no acute distress. HEAD: Normal with no signs of trauma. EYES: PERRL, extraocular movements intact, sclera anicteric, conjunctiva clear. ENT: Ears normal, oropharynx clear without exudates, moist mucous membranes. NECK: Trachea midline, full range of motion, supple. LUNGS: Breath sounds equal, clear to auscultation bilaterally, no wheezes, no crackles, no accessory muscle use. HEART: Regular rate and rhythm, S1, S2 without murmur, rub or gallop. ABDOMEN: Soft, NT,ND, normoactive bowel sounds, no guarding, no rebound, no hepatosplenomegaly, no masses. EXTREMITIES: 2+ pulses, warm, well-perfused, no edema. NEUROLOGICAL: Cranial nerves II through XII grossly intact. Normal speech, gait is stable . PSYCH: Normal mood, normal affect. SKIN: Warm, dry, normal turgor, no rashes or lesions noted CBCD WBC 4.5 K/mm3 (4.0-10.0) 11/08/19 05:57 RBC 4.68 M/mm3 (4.00-5.60) 11/08/19 05:57 Hgb 13.4 GM/dL (11.7-16.9) 11/08/19 05:57 Hct 38.8 % (35.4-49) 11/08/19 05:57 MCV 82.8 fl (80-96) 11/08/19 05:57 MCHC 34.5 g/dl (32.0-35.9) 11/08/19 05:57 RDW 14.1 % (11.9-15.9) 11/08/19 05:57 Plt Count 189 K/MM3 (134-434) 11/08/19 05:57 MPV 7.2 fl (7.5-11.1) L 11/08/19 05:57 CMP Sodium 139 mmol/L (136-145) 11/08/19 05:57 Potassium 4.2 mmol/L (3.5-5.1) 11/08/19 05:57 Chloride 105 mmol/L (98-107) 11/08/19 05:57 Carbon Dioxide 28 mmol/L (21-32) 11/08/19 05:57 Anion Gap 6 MMOL/L (8-16) L 11/08/19 05:57 BUN 17.9 mg/dL (7-18) 11/08/19 05:57 Creatinine 1.0 mg/dL (0.55-1.3) 11/08/19 05:57 Random Glucose 97 mg/dL (74-106) 11/08/19 05:57 Calcium 8.4 mg/dL (8.5-10.1) L 11/08/19 05:57 Total Bilirubin 0.6 mg/dL (0.2-1) 11/06/19 05:50 AST 15 U/L (15-37) 11/06/19 05:50 ALT 30 U/L (13-61) 11/06/19 05:50 Alkaline Phosphatase 68 U/L (45-117) 11/06/19 05:50 Total Protein 6.8 g/dl (6.4-8.2) 11/06/19 05:50 Albumin 4.0 g/dl (3.4-5.0) 11/06/19 05:50 Current Medications Generic Name Dose Route Start Last Admin Trade Name Yordyq PRN Reason Stop Dose Admin Amlodipine Besylate 5 mg 11/06/19 10:00 11/08/19 09:57 Norvasc - PO 5 mg DAILY JACKIE Administration Aspirin 81 mg 11/07/19 10:00 11/08/19 09:57 Ecotrin - PO 81 mg DAILY JACKIE Administration Atorvastatin Calcium 40 mg 11/06/19 22:00 11/07/19 21:34 Lipitor - PO 40 mg HS JACKIE Administration Desmopressin Acetate 0.4 mg 11/07/19 22:00 11/08/19 13:00 Ddavp - PO 0.4 mg Q8H JACKIE Administration Heparin Sodium (Porcine) 5,000 unit 11/06/19 22:00 11/08/19 13:00 Heparin - SQ 5,000 unit TID JACKIE Administration Losartan Potassium 100 mg 11/06/19 10:00 11/08/19 09:56 Cozaar - PO 100 mg DAILY JACKIE Administration Home Medications Medication Instructions Recorded Amlodipine Besylate 5 mg PO DAILY 07/17/19 Desmopressin Acetate [Ddavp] 0.2 mg PO TID 07/17/19 Losartan Potassium 100 mg PO DAILY 07/17/19 Laboratory Tests 11/07/19 06:00 Triglycerides 226 H Cholesterol 166 Total LDL Cholesterol 105 H HDL Cholesterol [address] head: Mild volume loss, ventricular dilatation and chronic microvascular ischemic disease Focal chronic infarct in the right anterior periventricular white matter No gross acute intracranial pathology MRI of the brain: acute infarct is noted within the posterior limb of the right internal capsule adjacent to the genu. echo: mild mr, mild tr, otherwise normal. ASSESSMENT AND PLAN: Patient is a 54yo male with Hx of DI presented with acute change of mental status and as per patient he doubles the dose of desmopressin at nights to 0.4mg since has been going to the bathroom more than usual. # Acute Stroke on aspirin and lipitor continue , on a holter monitor to r/o P- afib , echo as above, carotid duplex: mild internal thickening at the common carotid bifurcation/bulb. cardio on the case, on the holter monitor to possible P-afib. nepro/neuro/endocrine on the case # Hx of DI , continue with the current dose to 0.4mg tid of desmopressin. # chronic focal infarct in the right anterior periventricular white matter. #Dyslipidemia: on liptor continue DVT Px: SCds, heparin check the holter monitor
--- NOTE | 2019-11-09 14:01 | PN ---
Progress Note, Physician History of Present Illness: No PAF on telemetry thus far, sensorium has cleared to baseline. - Current Medication List Current Medications: Active Medications Amlodipine Besylate (Norvasc -) 5 mg PO DAILY [facility] Last Admin: 11/09/19 10:31 Dose: 5 mg Aspirin (Ecotrin -) 81 mg PO DAILY [facility] Last Admin: 11/09/19 10:31 Dose: 81 mg Atorvastatin Calcium (Lipitor -) 40 mg PO HS [facility] Last Admin: 11/08/19 22:07 Dose: 40 mg Desmopressin Acetate (Ddavp -) 0.4 mg PO Q8H [facility] Last Admin: 11/09/19 13:23 Dose: 0.4 mg Heparin Sodium (Porcine) (Heparin -) 5,000 unit SQ TID [facility] Last Admin: 11/09/19 13:23 Dose: 5,000 unit Losartan Potassium (Cozaar -) 100 mg PO DAILY [facility] Last Admin: 11/09/19 10:31 Dose: 100 mg Polyethylene Glycol (Miralax (For Daily Use) -) 17 gm PO BID [facility] Last Admin: 11/09/19 10:32 Dose: 17 gm - Objective Vital Signs: Vital Signs Temperature 98.1 F 11/09/19 05:46 Pulse Rate 62 11/09/19 05:46 Respiratory Rate 18 11/09/19 05:46 Blood Pressure 144/82 11/09/19 05:46 O2 Sat by Pulse Oximetry (%) 97 11/08/19 21:00 Constitutional: Yes: No Distress, Calm Neck: Yes: Supple Cardiovascular: Yes: Regular Rate and Rhythm Respiratory: Yes: Regular, CTA Bilaterally Gastrointestinal: Yes: Normal Bowel Sounds, Soft Edema: No Labs: CBC, BMP 11/08/19 05:57 11/08/19 05:57 - ....Imaging EKG: Report Reviewed (Tele: NSR no PAF) Problem List - Problems (1) Hypertension Code(s): I10 - ESSENTIAL (PRIMARY) HYPERTENSION Qualifiers: Hypertension type: essential hypertension Qualified Code(s): I10 - Essential (primary) hypertension (2) Acute lacunar stroke Code(s): I63.81 - OTHER CEREB INFRC DUE TO OCCLS OR STENOSIS OF SMALL ARTERY (3) Diabetes insipidus Code(s): E23.2 - DIABETES INSIPIDUS (4) AMS (altered mental status) Code(s): R41.82 - ALTERED MENTAL STATUS, UNSPECIFIED Qualifiers: Altered mental status type: unspecified Qualified Code(s): R41.82 - Altered mental status, unspecified Assessment/Plan CT head: Mild volume loss, ventricular dilatation and chronic microvascular ischemic disease Focal chronic infarct in the right anterior periventricular white matter No gross acute intracranial pathology MRI of the brain: Right mca small lacunar stroke Echo: mild mr, mild tr, otherwise normal. EEG Normal 1. Altered mental status referable to acute lacunar stroke resolved 2. HTN 3. Diabetes insipidis P:1. F/u holter and monitoring and evaluation advisor to r/o PAF. If unrevealing may benefit from longer term arrhythmia monitoring 2. ASA 81 qd, losartan 100 qd, Norvasc 5 qd and Lipitor 40 qd 3. Cont with desmopressin 0.4 TID with monitor Na
[2019-11-09 16:42] VITALS: BMI 39.9
[2019-11-09] MEDS ORDERED: PT OWN MED DRAWER 7, Y5N ONE (20:33)
--- NOTE | 2019-11-09 20:54 | PN ---
Progress Note (short form) - Note Progress Note: 1. diabetes insipidus 2. htn 3. change in mental status/confusion 4. CVA Current Medications Amlodipine Besylate (Norvasc -) 5 mg PO DAILY [facility] Last Admin: 11/09/19 10:31 Dose: 5 mg Aspirin (Ecotrin -) 81 mg PO DAILY [facility] Last Admin: 11/09/19 10:31 Dose: 81 mg Atorvastatin Calcium (Lipitor -) 40 mg PO HS [facility] Last Admin: 11/08/19 22:07 Dose: 40 mg Desmopressin Acetate (Ddavp -) 0.4 mg PO Q8H [facility] Last Admin: 11/09/19 13:23 Dose: 0.4 mg Heparin Sodium (Porcine) (Heparin -) 5,000 unit SQ TID [facility] Last Admin: 11/09/19 13:23 Dose: 5,000 unit Losartan Potassium (Cozaar -) 100 mg PO DAILY [facility] Last Admin: 11/09/19 10:31 Dose: 100 mg Polyethylene Glycol (Miralax (For Daily Use) -) 17 gm PO BID [facility] Last Admin: 11/09/19 10:32 Dose: 17 gm Last Vital Signs Temp Pulse Resp BP Pulse Ox 98.4 F 69 15 132/70 97 11/09/19 18:00 11/09/19 18:00 11/09/19 18:00 11/09/19 18:00 11/09/19 20:18 alert in nad Lungs clear Heart reg Abd soft nontender 11/08/19 05:57 11/08/19 05:57 IMP- diabetes insipidus stable on desmo f/u bmp in am
[2019-11-09] MEDS: ATORVASTATIN CA 40 MG TABLET (FP) PO SCH (21:08)
[2019-11-10] MEDS: DESMOPRESSIN ACETATE 0.2 MG TABLET PO SCH (05:46)
[2019-11-10] MEDS: HEPARIN NA (PORCINE) 5,000 UNITS/ML 1ML VIAL SQ SCH ×3 (05:46→21:11)
[2019-11-10 06:53] LABS: BLOOD UREA NITROGEN 15.7 mg/dL (7-18); CALCIUM 8.5 mg/dL (8.5-10.1); CREATININE 0.9 mg/dL (0.55-1.3); POTASSIUM 3.7 mmol/L (3.5-5.1)
--- NOTE | 2019-11-10 10:17 | PN ---
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 Patient was brought for confusion and disroientation. His desmopressin was increased. Patient denies any head injury, fever , vomiting or hemiparesis. Patient has ct head it is unremarkable. There is chronic microvascular changes. confused resolved. Patient has mri positive for right basal gangalia/IC small lacunar stroke. Patient is feeling better. 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 was brought for transient confusion, now resolved. 2. right mca small lacunar stroke Plan: continue aspirin and stati cardiology consult appreciated no evidence of atrial fibrillation carotid ultrasound is normal - life style modification and stroke education was discussed again he can be discharged home from neurological point of view Thanking you so much Marc Muse MD
[2019-11-10] MEDS: amLODIPine BESYLATE 5 MG TABLET (FP) PO SCH (10:33)
[2019-11-10] MEDS: ASPIRIN COATED 81 MG TABLET.EC PO SCH (10:33)
[2019-11-10] MEDS: POLYETHYLENE GLYCOL 3350 119 GM BTL PO SCH ×2 (10:33→21:12)
[2019-11-10] MEDS: LOSARTAN POTASSIUM 50 MG TABLET (FP) PO SCH (10:34)
--- NOTE | 2019-11-10 11:26 | PN ---
Progress Note, Physician History of Present Illness: No PAF on telemetry thus far, sensorium has cleared to baseline. - Current Medication List Current Medications: Active Medications Amlodipine Besylate (Norvasc -) 5 mg PO DAILY [facility] Last Admin: 11/10/19 10:33 Dose: 5 mg Aspirin (Ecotrin -) 81 mg PO DAILY [facility] Last Admin: 11/10/19 10:33 Dose: 81 mg Atorvastatin Calcium (Lipitor -) 40 mg PO HS [facility] Last Admin: 11/09/19 21:08 Dose: 40 mg Desmopressin Acetate (Ddavp -) 0.2 mg PO Q8H [facility] Heparin Sodium (Porcine) (Heparin -) 5,000 unit SQ TID [facility] Last Admin: 11/10/19 05:46 Dose: 5,000 unit Losartan Potassium (Cozaar -) 100 mg PO DAILY [facility] Last Admin: 11/10/19 10:34 Dose: 100 mg Polyethylene Glycol (Miralax (For Daily Use) -) 17 gm PO BID [facility] Last Admin: 11/10/19 10:33 Dose: Not Given - Objective Vital Signs: Vital Signs Temperature 98.3 F 11/10/19 10:00 Pulse Rate 78 11/10/19 10:00 Respiratory Rate 20 11/10/19 10:00 Blood Pressure 148/82 11/10/19 10:00 O2 Sat by Pulse Oximetry (%) 97 11/09/19 20:18 Constitutional: Yes: No Distress, Calm Neck: Yes: Supple Cardiovascular: Yes: Regular Rate and Rhythm Respiratory: Yes: Regular, CTA Bilaterally Gastrointestinal: Yes: Normal Bowel Sounds, Soft Edema: No Labs: CBC, BMP 11/08/19 05:57 11/10/19 05:47 - ....Imaging EKG: Report Reviewed (Tele: No PAF thus far) Problem List - Problems (1) Hypertension Code(s): I10 - ESSENTIAL (PRIMARY) HYPERTENSION Qualifiers: Hypertension type: essential hypertension Qualified Code(s): I10 - Essential (primary) hypertension (2) Acute lacunar stroke Code(s): I63.81 - OTHER CEREB INFRC DUE TO OCCLS OR STENOSIS OF SMALL ARTERY (3) Diabetes insipidus Code(s): E23.2 - DIABETES INSIPIDUS (4) AMS (altered mental status) Code(s): R41.82 - ALTERED MENTAL STATUS, UNSPECIFIED Qualifiers: Altered mental status type: unspecified Qualified Code(s): R41.82 - Altered mental status, unspecified Assessment/Plan CT head: Mild volume loss, ventricular dilatation and chronic microvascular ischemic disease Focal chronic infarct in the right anterior periventricular white matter No gross acute intracranial pathology MRI of the brain: Right mca small lacunar stroke Echo: mild mr, mild tr, otherwise normal. EEG Normal 1. Altered mental status referable to acute lacunar stroke resolved 2. HTN 3. Diabetes insipidis P:1. F/u holter and personnel monitor to r/o PAF. If unrevealing may benefit from longer term arrhythmia monitoring 2. ASA 81 qd, losartan 100 qd, Norvasc 5 qd and Lipitor 40 qd 3. Cont with desmopressin 0.4 TID with monitor Na 4. F/u in cardiology office , plan of care d/w family and patient
--- NOTE | 2019-11-10 11:29 | PN ---
Progress Note, [employer] - Note Progress Note: Selected Entries 11/09/19 11/09/19 11/09/19 02:00 05:46 10:00 Breakfast Lunch Supper Temperature 98.3 F 98.1 F 98.3 F 11/09/19 11/09/19 11/09/19 10:57 14:00 17:45 Breakfast 100% Lunch 100% Supper 100% Temperature 98.3 F 11/09/19 11/09/19 11/10/19 18:00 22:00 01:56 Breakfast Lunch Supper Temperature 98.4 F 97.4 F L 97.7 F 11/10/19 11/10/19 06:00 10:00 Breakfast Lunch Supper Temperature 97.6 F 98.3 F Laboratory Tests 11/08/19 05:57 WBC 4.5 Pt on soft diet and thin liquids. Pt tolerating diet. Flat affect, slower to respond, more passive than baseline. Seems good cognitivelt but family made aware of possible cognitive changes than may be observed functionally at home. (OPD Ish cognitive w/u not indicated now , but possibly if changes noted) Oral motor exercises given for left facial.
--- NOTE | 2019-11-10 13:30 | PN ---
Progress Note, Physician History of Present Illness: Pt seen and examined at bedside. he is awake and alert. he denies excess thirst. - Current Medication List Current Medications: Active Medications Amlodipine Besylate (Norvasc -) 5 mg PO DAILY [facility] Last Admin: 11/10/19 10:33 Dose: 5 mg Aspirin (Ecotrin -) 81 mg PO DAILY [facility] Last Admin: 11/10/19 10:33 Dose: 81 mg Atorvastatin Calcium (Lipitor -) 40 mg PO HS [facility] Last Admin: 11/09/19 21:08 Dose: 40 mg Desmopressin Acetate (Ddavp -) 0.3 mg PO Q8H [facility] Heparin Sodium (Porcine) (Heparin -) 5,000 unit SQ TID [facility] Last Admin: 11/10/19 05:46 Dose: 5,000 unit Losartan Potassium (Cozaar -) 100 mg PO DAILY [facility] Last Admin: 11/10/19 10:34 Dose: 100 mg Polyethylene Glycol (Miralax (For Daily Use) -) 17 gm PO BID [facility] Last Admin: 11/10/19 10:33 Dose: Not Given - Objective Vital Signs: Vital Signs Temperature 98.3 F 11/10/19 10:00 Pulse Rate 78 11/10/19 10:00 Respiratory Rate 20 11/10/19 10:00 Blood Pressure 148/82 11/10/19 10:00 O2 Sat by Pulse Oximetry (%) 97 11/10/19 09:00 Constitutional: Yes: Calm Eyes: Yes: Conjunctiva Clear HENT: Yes: Atraumatic Neck: Yes: Supple Cardiovascular: Yes: S1, S2 Respiratory: Yes: CTA Bilaterally Gastrointestinal: Yes: Soft Genitourinary: Yes: WNL Musculoskeletal: Yes: WNL Edema: No Neurological: Yes: Oriented Psychiatric: Yes: Oriented Labs: CBC, BMP 11/08/19 05:57 11/10/19 05:47 Assessment/Plan Current Medications Generic Name Dose Route Start Last Admin Trade Name Freq PRN Reason Stop Dose Admin Amlodipine Besylate 5 mg 11/06/19 10:00 11/10/19 10:33 Norvasc - PO 5 mg DAILY [facility] Administration Aspirin 81 mg 11/07/19 10:00 11/10/19 10:33 Ecotrin - PO 81 mg DAILY [facility] Administration Atorvastatin Calcium 40 mg 11/06/19 22:00 11/09/19 21:08 Lipitor - PO 40 mg HS [facility] Administration Desmopressin Acetate 0.3 mg 11/10/19 22:00 Ddavp - PO Q8H [facility] Heparin Sodium (Porcine) 5,000 unit 11/06/19 22:00 11/10/19 05:46 Heparin - SQ 5,000 unit TID [facility] Administration Losartan Potassium 100 mg 11/06/19 10:00 11/10/19 10:34 Cozaar - PO 100 mg DAILY [facility] Administration Polyethylene Glycol 17 gm 11/09/19 10:30 11/10/19 10:33 Miralax (For Daily Use) - PO Not Given BID [facility] Impression 1. diabetes insipidus 2. htn 3. change in mental status/confusion 4. CVA Plan - sodium is low today - hold next dose of desmopressin and decrease dose - repeat sodium level this afternoon - discussed with medical team
[2019-11-10] MEDS ORDERED: DESMOPRESSIN ACETATE 0.2 MG TABLET PO SCH ×3 (14:00→22:00)
[2019-11-10 14:05] LABS: BLOOD UREA NITROGEN 14.2 mg/dL (7-18); CALCIUM 8.9 mg/dL (8.5-10.1); CREATININE 0.8 mg/dL (0.55-1.3); POTASSIUM 4.1 mmol/L (3.5-5.1)
--- NOTE | 2019-11-10 14:32 | HOL ---
Hook-up date: 2019-11-07 15:13:00 Duration: 23:43:00 Test Indications: STROKE, R/O PAF Medications: 91654 QRS complexes 2 Ventricular ectopics which represent <1 % of total QRS comp. 7 Supraventricular ectopics which represent <1 % of total QRS comp. * Paced QRS complexs which represent % of total QRS comp. * % of Time Classified as Noise VENTRICULAR ECTOPY 2 Isolated 0 Bigeminal Cycles 0 Couplets 0 Runs 0 Beats in Runs * Beats LONGEST at * BPM at :: -- * Beats FASTEST at * BPM at :: -- SUPRAVENTRICULAR ECTOPY 7 Isolated 0 Couplets 0 Runs 0 Beats in Runs * Beats LONGEST at * BPM at :: -- * Beats FASTEST at * BPM at :: -- HEART RATES 53 MIN at 04:11:25 2019-11-08 69 AVG 98 MAX at 19:40:41 2019-11-07 LONGEST RR 1.408 secs at 05:27:57 2019-11-08 1. BASELINE RHYTHM IS 69 BPM. RATES VARIED FROM 53 BPM TO 98 BPM 2. RARE VENTRICULAR ECTOPIES] 3. RARE ATRIAL ECTOPIES 4. NO SIGNIFICANT ST-T ABNORMALITIES 5. DIARY WAS NOT SUBMITTED Confirmed by GEORGES BLUM, СЕРГЕЙ ([id number]) on 11/10/2019 2:32:22 PM Referred By: Mary SCHUMACHER Overread By: СЕРГЕЙ SU MD
--- NOTE | 2019-11-10 15:54 | PN ---
Physical Exam: SUBJECTIVE: Patient seen and examined NAEON Tele w/o alarms Pt denies significant weakness, numbness, loss of sensation, difficult eating/ speaking. Says he urinated 3-4x yesterday, large volumes. Expresses desire to be discharged. OBJECTIVE: Vital Signs Period Temp Pulse Resp BP Sys/Harmon Pulse Ox Last 24 Hr 97.4 F-98.5 F 66-81 15-20 132-148/62-83 97-97 GENERAL: The patient is awake, alert, and fully oriented, in no acute distress. HEAD: Normal with no signs of trauma. EYES: PERRL, extraocular movements intact, sclera anicteric, conjunctiva clear. No ptosis. ENT: Ears normal, nares patent, moist mucous membranes. NECK: Trachea midline, full range of motion, supple. LUNGS: Breath sounds equal, clear to auscultation bilaterally, no wheezes, no crackles, no accessory muscle use. HEART: Regular rate and rhythm, S1, S2 without murmur, rub or gallop. ABDOMEN: Soft, nontender, nondistended, normoactive bowel sounds, no guarding, no rebound, no hepatosplenomegaly, no masses. EXTREMITIES: 2+ pulses, warm, well-perfused, no edema. NEUROLOGICAL: Cranial nerves II through XII grossly intact. Normal speech, normal gait observed. NIHSS 1(very mild Left-sided nasolabial effacement) PSYCH: Normal mood, normal affect. SKIN: Warm, dry, normal turgor, no rashes or lesions noted Laboratory Results - last 24 hr 11/10/19 11/10/19 05:47 13:20 Sodium 130 L 130 L Potassium 3.7 4.1 Chloride 97 L 97 L Carbon Dioxide 26 25 Anion Gap 7 L 9 BUN 15.7 14.2 Creatinine 0.9 0.8 Est GFR (CKD-EPI)AfAm 111.05 116.56 Est GFR (CKD-EPI)NonAf 95.81 100.57 Random Glucose 113 H 122 H Calcium 8.5 8.9 Active Medications Generic Name Dose Route Start Last Admin Trade Name Freq PRN Reason Stop Dose Admin Amlodipine Besylate 5 mg 11/06/19 10:00 11/10/19 10:33 Norvasc - PO 5 mg DAILY [facility] Administration Aspirin 81 mg 11/07/19 10:00 11/10/19 10:33 Ecotrin - PO 81 mg DAILY [facility] Administration Atorvastatin Calcium 40 mg 11/06/19 22:00 11/09/19 21:08 Lipitor - PO 40 mg HS [facility] Administration Desmopressin Acetate 0.1 mg 11/10/19 22:00 Ddavp - PO 11/10/19 22:01 ONCE ONE Heparin Sodium (Porcine) 5,000 unit 11/06/19 22:00 11/10/19 14:50 Heparin - SQ 5,000 unit TID [facility] Administration Losartan Potassium 100 mg 11/06/19 10:00 11/10/19 10:34 Cozaar - PO 100 mg DAILY [facility] Administration Polyethylene Glycol 17 gm 11/09/19 10:30 11/10/19 10:33 Miralax (For Daily Use) - PO Not Given BID [facility] ASSESSMENT/PLAN: 54 year old male with history of pinealoma (s/p radiation at 15yo), diabetes insipidus, hypertension, admitted for acute metabolic encephalopathy. Patient was expressing confusion, mild short-term memory loss. Has been endorsing frequent urination. Has mild Left-sided nasolabial effacement. Neuro rec ASA + statin. Pt's insisting on hearing about an episode of documented Afib. No afib found on documentation. Neuro consulted Cardio. Echo normal. US carotid normal. Cardio([facility]) placed pt on Holter. S&S rec soft diet with thin liquids. Walked 400ft w/ PT. Holter showing rare events in 24hs(2 isolated ventric ectopy , 7 isolated SV ectopy). Having hyponatremia on 11/10/19 #Acute metabolic encephalopathy --ischemia CVA w/ mild symptoms > CT Head(11/05/19): mild volume loss, ventricular dilation, chronic microvascular changes with chronic infarct right anterior periventricular white matter. > EEG(11/06/19) --no abnormalities > MRI Brain(11/06/19) --acute infarct of posterior limb of Right internal capsule > Echo(11/07/19) --suboptimal quality, normal LV function > Carotid US(11/07/19) --no significant stenosis - NIHSS 0(11/05/19) - NIHSS 1(Left-sided nasolabial effacement)(11/06/19) - Neuro Consult(Dr. Muse) --no indication for spinal tap --unlikley to be status epilepticus, meningitis --rec carotid US, echo --normal --ok for discharge home from Neuro POV - S&S: soft diet w/ thin liquids - PT: 400ft, no outpt needs - Fall precautions #?Atrial Fibrillation --self-reported, no documented tele alarms - Cardio Consult([facility]): --cw ASA and statin --pt on Holter --rare events #Diabetes insipidus - Nephro Consult(Dr Benton): -- Desmopressin 0.4mg q8h --> Desmopressing 0.1mg in evening of 11/10 -- fu tomorrow's Na - Endocrinology consult (Dr. Quiroz): --change in desmopressin dose #Dyslipidemia > T cholesterol 166, LDL 105, TG 266 - cw statin #chronic essential HTN -Continue home medications; Losartan 100mg PO daily, Amlodipine 5mg PO daily #FEN - No IV fluids indicated - Follow BMP - Sodium controlled diet #Prophylaxis -Heparin 5000units subq TID Disposition -Admit to Telemetry floor Visit type - Emergency Visit Emergency Visit: No - New Patient This patient is new to me today: No - Critical Care Critical Care patient: No ATTENDING PHYSICIAN STATEMENT I saw and evaluated the patient. I reviewed the resident's note and discussed the case with the resident. I agree with the resident's findings and plan as documented. SUBJECTIVE: OBJECTIVE: ASSESSMENT AND PLAN:
--- NOTE | 2019-11-10 17:10 | PN ---
Teaching Attending Note Name of Resident: Enoch Armijo ATTENDING PHYSICIAN STATEMENT I saw and evaluated the patient. I reviewed the resident's note and discussed the case with the resident. I agree with the resident's findings and plan as documented. SUBJECTIVE: Patient is feeling better , urinating more during the day time Vital Signs Temperature 98.5 F 11/10/19 14:15 Pulse Rate 81 11/10/19 14:15 Respiratory Rate 18 11/10/19 14:15 Blood Pressure 133/76 11/10/19 14:15 O2 Sat by Pulse Oximetry (%) 97 11/10/19 09:00 GENERAL: The patient is awake, alert, and fully oriented, in no acute distress. HEAD: Normal with no signs of trauma. EYES: PERRL, extraocular movements intact, sclera anicteric, conjunctiva clear. ENT: Ears normal, oropharynx clear without exudates, moist mucous membranes. NECK: Trachea midline, full range of motion, supple. LUNGS: Breath sounds equal, clear to auscultation bilaterally, no wheezes, no crackles, no accessory muscle use. HEART: Regular rate and rhythm, S1, S2 without murmur, rub or gallop. ABDOMEN: Soft, NT,ND, normoactive bowel sounds, no guarding, no rebound, no hepatosplenomegaly, no masses. EXTREMITIES: 2+ pulses, warm, well-perfused, no edema. NEUROLOGICAL: Cranial nerves II through XII grossly intact. Normal speech, gait is stable . PSYCH: Normal mood, normal affect. SKIN: Warm, dry, normal turgor, no rashes or lesions noted CBCD WBC 4.5 K/mm3 (4.0-10.0) 11/08/19 05:57 RBC 4.68 M/mm3 (4.00-5.60) 11/08/19 05:57 Hgb 13.4 GM/dL (11.7-16.9) 11/08/19 05:57 Hct 38.8 % (35.4-49) 11/08/19 05:57 MCV 82.8 fl (80-96) 11/08/19 05:57 MCHC 34.5 g/dl (32.0-35.9) 11/08/19 05:57 RDW 14.1 % (11.9-15.9) 11/08/19 05:57 Plt Count 189 K/MM3 (134-434) 11/08/19 05:57 MPV 7.2 fl (7.5-11.1) L 11/08/19 05:57 CMP Sodium 130 mmol/L (136-145) L 11/10/19 13:20 Potassium 4.1 mmol/L (3.5-5.1) 11/10/19 13:20 Chloride 97 mmol/L (98-107) L 11/10/19 13:20 Carbon Dioxide 25 mmol/L (21-32) 11/10/19 13:20 Anion Gap 9 MMOL/L (8-16) 11/10/19 13:20 BUN 14.2 mg/dL (7-18) 11/10/19 13:20 Creatinine 0.8 mg/dL (0.55-1.3) 11/10/19 13:20 Random Glucose 122 mg/dL (74-106) H 11/10/19 13:20 Calcium 8.9 mg/dL (8.5-10.1) 11/10/19 13:20 Total Bilirubin 0.6 mg/dL (0.2-1) 11/06/19 05:50 AST 15 U/L (15-37) 11/06/19 05:50 ALT 30 U/L (13-61) 11/06/19 05:50 Alkaline Phosphatase 68 U/L (45-117) 11/06/19 05:50 Total Protein 6.8 g/dl (6.4-8.2) 11/06/19 05:50 Albumin 4.0 g/dl (3.4-5.0) 11/06/19 05:50 Home Medications Medication Instructions Recorded Amlodipine Besylate 5 mg PO DAILY 07/17/19 Losartan Potassium 100 mg PO DAILY 07/17/19 Desmopressin Acetate [Desmopressin 0.4 mg PO TID 30 Days #90 tablet 11/06/19 Acetate -] Laboratory Tests 11/07/19 06:00 Triglycerides 226 H Cholesterol 166 Total LDL Cholesterol 105 H HDL Cholesterol [address] head: Mild volume loss, ventricular dilatation and chronic microvascular ischemic disease Focal chronic infarct in the right anterior periventricular white matter No gross acute intracranial pathology MRI of the brain: acute infarct is noted within the posterior limb of the right internal capsule adjacent to the genu. echo: mild mr, mild tr, otherwise normal. ASSESSMENT AND PLAN: Patient is a 54yo male with Hx of DI presented with acute change of mental status and as per patient he doubles the dose of desmopressin at nights to 0.4mg since has been going to the bathroom more than usual. # Acute Stroke on aspirin and lipitor continue , on a holter monitor to r/o P- afib , echo as above, carotid duplex: mild internal thickening at the common carotid bifurcation/bulb. cardio on the case, on the holter monitor to possible P-afib, which was negative. nepro/neuro/endocrine on the case # Hx of DI , sodium level is low 130, current dose reduced to 0.2mg tid of desmopressin, but as per nephro hold desmopressin # chronic focal infarct in the right anterior periventricular white matter. #Dyslipidemia: on lipitor continue DVT Px: SCds, heparin the holter monitor is negative
[2019-11-10] MEDS ORDERED: PT OWN MED DRAWER 7, Y5N ONE (21:11)
[2019-11-10] MEDS: ATORVASTATIN CA 40 MG TABLET (FP) PO SCH (21:11)
[2019-11-10] MEDS ORDERED: DESMOPRESSIN ACETATE 0.1 MG TABLET PO ONE (22:00)
[2019-11-11] MEDS: HEPARIN NA (PORCINE) 5,000 UNITS/ML 1ML VIAL SQ SCH ×2 (06:39→14:34)
[2019-11-11 07:13] LABS: BILIRUBIN,TOTAL 0.5 mg/dL (0.2-1); BLOOD UREA NITROGEN 15.5 mg/dL (7-18); CALCIUM 8.8 mg/dL (8.5-10.1); CREATININE 0.9 mg/dL (0.55-1.3); POTASSIUM 4.5 mmol/L (3.5-5.1); TOT PROT 6.9 g/dl (6.4-8.2)
--- NOTE | 2019-11-11 07:38 | PN ---
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 Patient was brought for confusion and disroientation. His desmopressin was increased. Patient denies any head injury, fever , vomiting or hemiparesis. Patient has ct head it is unremarkable. There is chronic microvascular changes. confused resolved. Patient has mri positive for right basal gangalia/IC small lacunar stroke. 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 was brought for transient confusion, now resolved. 2. right mca small lacunar stroke Plan: continue aspirin and statin - life style modification and stroke education was discussed again he can be discharged home from neurological point of view Thanking you so much Marc Muse MD
[2019-11-11] MEDS: amLODIPine BESYLATE 5 MG TABLET (FP) PO SCH (09:23)
[2019-11-11] MEDS: ASPIRIN COATED 81 MG TABLET.EC PO SCH (09:24)
[2019-11-11] MEDS: POLYETHYLENE GLYCOL 3350 119 GM BTL PO SCH (09:24)
[2019-11-11] MEDS: LOSARTAN POTASSIUM 50 MG TABLET (FP) PO SCH (09:24)
[2019-11-11] MEDS ORDERED: PNEUMOCOCCAL 23 VACCINE 0.5 ML VIAL IM ONE (10:00)
--- NOTE | 2019-11-11 10:05 | PN ---
Progress Note, SET UP [employer] MACH[employer]ES - Note Progress Note: Selected Entries 11/09/19 11/09/19 11/09/19 02:00 05:46 10:00 Breakfast Lunch Supper Temperature 98.3 F 98.1 F 98.3 F 11/09/19 11/09/19 11/09/19 10:57 14:00 17:45 Breakfast 100% Lunch 100% Supper 100% Temperature 98.3 F 11/09/19 11/09/19 11/10/19 18:00 22:00 01:56 Breakfast Lunch Supper Temperature 98.4 F 97.4 F L 97.7 F 11/10/19 11/10/19 06:00 10:00 Breakfast Lunch Supper Temperature 97.6 F 98.3 F Laboratory Tests 11/08/19 05:57 WBC 4.5 Selected Entries 11/10/19 11/10/19 11/10/19 01:56 06:00 10:00 Breakfast Lunch Temperature 97.7 F 97.6 F 98.3 F 11/10/19 11/10/19 11/10/19 12:45 14:15 18:00 Breakfast 75% Lunch 100% Temperature 98.5 F 98 F 11/10/19 11/11/19 11/11/19 21:14 02:00 06:00 Breakfast Lunch Temperature 98.1 F 97.7 F 97.8 F Oral motor exercises given for left facial. Upgrade to reg diet/continue thin liquids
--- NOTE | 2019-11-11 12:21 | PN ---
Progress Note, Physician History of Present Illness: No PAF on telemetry and holter thus far, sensorium has cleared to baseline. - Current Medication List Current Medications: Active Medications Amlodipine Besylate (Norvasc -) 5 mg PO DAILY [facility] Last Admin: 11/11/19 09:23 Dose: 5 mg Aspirin (Ecotrin -) 81 mg PO DAILY [facility] Last Admin: 11/11/19 09:24 Dose: 81 mg Atorvastatin Calcium (Lipitor -) 40 mg PO HS [facility] Last Admin: 11/10/19 21:11 Dose: 40 mg Desmopressin Acetate (Ddavp -) 0.2 mg PO TID [facility] Heparin Sodium (Porcine) (Heparin -) 5,000 unit SQ TID [facility] Last Admin: 11/11/19 06:39 Dose: 5,000 unit Losartan Potassium (Cozaar -) 100 mg PO DAILY [facility] Last Admin: 11/11/19 09:24 Dose: 100 mg Polyethylene Glycol (Miralax (For Daily Use) -) 17 gm PO BID [facility] Last Admin: 11/11/19 09:24 Dose: Not Given - Objective Vital Signs: Vital Signs Temperature 98.2 F 11/11/19 10:00 Pulse Rate 83 11/11/19 10:00 Respiratory Rate 16 11/11/19 10:00 Blood Pressure 136/83 11/11/19 10:00 O2 Sat by Pulse Oximetry (%) 97 11/11/19 08:44 Constitutional: Yes: No Distress, Calm Neck: Yes: Supple Cardiovascular: Yes: Regular Rate and Rhythm Respiratory: Yes: Regular, CTA Bilaterally Gastrointestinal: Yes: Normal Bowel Sounds, Soft Edema: No Labs: CBC, BMP 11/08/19 05:57 11/11/19 05:40 Problem List - Problems (1) Hypertension Code(s): I10 - ESSENTIAL (PRIMARY) HYPERTENSION Qualifiers: Hypertension type: essential hypertension Qualified Code(s): I10 - Essential (primary) hypertension (2) Acute lacunar stroke Code(s): I63.81 - OTHER CEREB INFRC DUE TO OCCLS OR STENOSIS OF SMALL ARTERY (3) Diabetes insipidus Code(s): E23.2 - DIABETES INSIPIDUS (4) AMS (altered mental status) Code(s): R41.82 - ALTERED MENTAL STATUS, UNSPECIFIED Qualifiers: Altered mental status type: unspecified Qualified Code(s): R41.82 - Altered mental status, unspecified Assessment/Plan 11/07/2019 Holter: NSR rare PVC, PAC CT head: Mild volume loss, ventricular dilatation and chronic microvascular ischemic disease Focal chronic infarct in the right anterior periventricular white matter No gross acute intracranial pathology MRI of the brain: Right mca small lacunar stroke Echo: mild mr, mild tr, otherwise normal. EEG Normal 1. Altered mental status referable to acute lacunar stroke resolved 2. HTN 3. Diabetes insipidis 4. Hyponatremia resolving P:1. No PAF on holter and clammer. Since unrevealing may benefit from longer term arrhythmia monitoring 2. ASA 81 qd, losartan 100 qd, Norvasc 5 qd and Lipitor 40 qd 3. Cont with desmopressin 0.4 TID with monitor Na 4. F/u in cardiology office , plan of care d/w family and patient
--- NOTE | 2019-11-11 12:59 | PN ---
Teaching Attending Note Name of Resident: Enoch Armijo ATTENDING PHYSICIAN STATEMENT I saw and evaluated the patient. I reviewed the resident's note and discussed the case with the resident. I agree with the resident's findings and plan as documented. SUBJECTIVE: Patient is comfortable with no acute distress, patient's at bedside. Vital Signs Temperature 98.2 F 11/11/19 10:00 Pulse Rate 83 11/11/19 10:00 Respiratory Rate 16 11/11/19 10:00 Blood Pressure 136/83 11/11/19 10:00 O2 Sat by Pulse Oximetry (%) 97 11/11/19 08:44 GENERAL: The patient is awake, alert, and fully oriented, in no acute distress. HEAD: Normal with no signs of trauma. EYES: PERRL, extraocular movements intact, sclera anicteric, conjunctiva clear. ENT: Ears normal, oropharynx clear without exudates, moist mucous membranes. NECK: Trachea midline, full range of motion, supple. LUNGS: Breath sounds equal, clear to auscultation bilaterally, no wheezes, no crackles, no accessory muscle use. HEART: Regular rate and rhythm, S1, S2 positive , without murmur, rub or gallop. ABDOMEN: Soft, NT,ND, normoactive bowel sounds, no guarding, no rebound, no hepatosplenomegaly, no masses. EXTREMITIES: 2+ pulses, warm, well-perfused, no edema. NEUROLOGICAL: Cranial nerves II through XII grossly intact. Normal speech, gait is stable . PSYCH: Normal mood, normal affect. SKIN: Warm, dry, normal turgor, no rashes or lesions noted CBCD WBC 4.5 K/mm3 (4.0-10.0) 11/08/19 05:57 RBC 4.68 M/mm3 (4.00-5.60) 11/08/19 05:57 Hgb 13.4 GM/dL (11.7-16.9) 11/08/19 05:57 Hct 38.8 % (35.4-49) 11/08/19 05:57 MCV 82.8 fl (80-96) 11/08/19 05:57 MCHC 34.5 g/dl (32.0-35.9) 11/08/19 05:57 RDW 14.1 % (11.9-15.9) 11/08/19 05:57 Plt Count 189 K/MM3 (134-434) 11/08/19 05:57 MPV 7.2 fl (7.5-11.1) L 11/08/19 05:57 CMP Sodium 135 mmol/L (136-145) L 11/11/19 05:40 Potassium 4.5 mmol/L (3.5-5.1) 11/11/19 05:40 Chloride 105 mmol/L (98-107) 11/11/19 05:40 Carbon Dioxide 22 mmol/L (21-32) 11/11/19 05:40 Anion Gap 8 MMOL/L (8-16) 11/11/19 05:40 BUN 15.5 mg/dL (7-18) 11/11/19 05:40 Creatinine 0.9 mg/dL (0.55-1.3) 11/11/19 05:40 Random Glucose 96 mg/dL (74-106) 11/11/19 05:40 Calcium 8.8 mg/dL (8.5-10.1) 11/11/19 05:40 Total Bilirubin 0.5 mg/dL (0.2-1) 11/11/19 05:40 AST 87 U/L (15-37) H 11/11/19 05:40 ALT 122 U/L (13-61) H 11/11/19 05:40 Alkaline Phosphatase 89 U/L (45-117) 11/11/19 05:40 Total Protein 6.9 g/dl (6.4-8.2) 11/11/19 05:40 Albumin 4.0 g/dl (3.4-5.0) 11/11/19 05:40 Current Medications Generic Name Dose Route Start Last Admin Trade Name Yordyq PRN Reason Stop Dose Admin Amlodipine Besylate 5 mg 11/06/19 10:00 11/11/19 09:23 Norvasc - PO 5 mg DAILY [facility] Administration Aspirin 81 mg 11/07/19 10:00 11/11/19 09:24 Ecotrin - PO 81 mg DAILY [facility] Administration Atorvastatin Calcium 40 mg 11/06/19 22:00 11/10/19 21:11 Lipitor - PO 40 mg HS [facility] Administration Desmopressin Acetate 0.2 mg 11/11/19 14:00 Ddavp - PO TID [facility] Heparin Sodium (Porcine) 5,000 unit 11/06/19 22:00 11/11/19 06:39 Heparin - SQ 5,000 unit TID [facility]ACKIE Administration Losartan Potassium 100 mg 11/06/19 10:00 11/11/19 09:24 Cozaar - PO 100 mg DAILY [facility] Administration Polyethylene Glycol 17 gm 11/09/19 10:30 11/11/19 09:24 Miralax (For Daily Use) - PO Not Given BID JACKIE 11/07/19 06:00 Triglycerides 226 H Cholesterol 166 Total LDL Cholesterol 105 H HDL Cholesterol 30 L Home Medications Medication Instructions Recorded Amlodipine Besylate 5 mg PO DAILY 07/17/19 Losartan Potassium 100 mg PO DAILY 07/17/19 Aspirin Coated [Ecotrin -] 81 mg PO DAILY #30 tablet.ec 11/11/19 Atorvastatin Ca [Lipitor] 40 mg PO HS #30 tablet 11/11/19 CT head: Mild volume loss, ventricular dilatation and chronic microvascular ischemic disease Focal chronic infarct in the right anterior periventricular white matter No gross acute intracranial pathology MRI of the brain: acute infarct is noted within the posterior limb of the right internal capsule adjacent to the genu. echo: mild mr, mild tr, otherwise normal. ASSESSMENT AND PLAN: Patient is a 54yo male with Hx of DI presented with acute change of mental status and as per patient he doubles the dose of desmopressin at nights to 0.4mg since has been going to the bathroom more than usual. # Acute Stroke on aspirin and lipitor continue , on a holter monitor to r/o P- afib , echo as above, carotid duplex: mild internal thickening at the common carotid bifurcation/bulb. cardio on the case, on the holter monitor to possible P-afib, which was negative. will follow up as an outpatient for further w/u with the Aj umaña. follow up nepro/neuro/endocrine. # Hx of DI , sodium level is low 130-->135 today , dose reduced to 0.1mg tid of desmopressin per core maker helper ,patient needs to have his lab to be repeated on on november 13.for sodium level so that can adjust the dose accordingly, patient and the understand. # chronic focal infarct in the right anterior periventricular white matter. #Dyslipidemia: on lipitor continue DVT Px: SCds, heparin the holter monitor is negative so far , further w/u as an outpatient. will dc the patient. with follow up visit with nephro/neuro and cardio
[2019-11-11] MEDS ORDERED: DESMOPRESSIN ACETATE 0.2 MG TABLET PO SCH (14:00)
[2019-11-11 14:06] LABS: CALCIUM 9.6 mg/dL (8.5-10.1); CREATININE 0.9 mg/dL (0.55-1.3); POTASSIUM 4.3 mmol/L (3.5-5.1)
--- NOTE | 2019-11-11 14:40 | PN ---
Progress Note, Physician History of Present Illness: Pt seen and examined at bedside. He is awake and alert. he denies shortness of breath. He denies polyuria. - Current Medication List Current Medications: Active Medications Amlodipine Besylate (Norvasc -) 5 mg PO DAILY [facility] Last Admin: 11/11/19 09:23 Dose: 5 mg Aspirin (Ecotrin -) 81 mg PO DAILY [facility] Last Admin: 11/11/19 09:24 Dose: 81 mg Atorvastatin Calcium (Lipitor -) 40 mg PO HS [facility] Last Admin: 11/10/19 21:11 Dose: 40 mg Desmopressin Acetate (Ddavp -) 0.2 mg PO TID [facility] Last Admin: 11/11/19 14:34 Dose: Not Given Heparin Sodium (Porcine) (Heparin -) 5,000 unit SQ TID [facility] Last Admin: 11/11/19 14:34 Dose: 5,000 unit Losartan Potassium (Cozaar -) 100 mg PO DAILY [facility] Last Admin: 11/11/19 09:24 Dose: 100 mg Polyethylene Glycol (Miralax (For Daily Use) -) 17 gm PO BID [facility] Last Admin: 11/11/19 09:24 Dose: Not Given - Objective Vital Signs: Vital Signs Temperature 98.2 F 11/11/19 10:00 Pulse Rate 83 11/11/19 10:00 Respiratory Rate 16 11/11/19 10:00 Blood Pressure 136/83 11/11/19 10:00 O2 Sat by Pulse Oximetry (%) 97 11/11/19 08:44 Constitutional: Yes: Calm Eyes: Yes: Conjunctiva Clear HENT: Yes: Atraumatic Neck: Yes: Supple Cardiovascular: Yes: S1, S2 Respiratory: Yes: CTA Bilaterally Gastrointestinal: Yes: WNL Genitourinary: Yes: WNL Musculoskeletal: Yes: WNL Edema: No Neurological: Yes: Oriented Psychiatric: Yes: Oriented Labs: CBC, BMP 11/08/19 05:57 11/11/19 13:06 Problem List - Problems (1) AMS (altered mental status) Code(s): R41.82 - ALTERED MENTAL STATUS, UNSPECIFIED Qualifiers: Altered mental status type: unspecified Qualified Code(s): R41.82 - Altered mental status, unspecified (2) Acute lacunar stroke Code(s): I63.81 - OTHER CEREB INFRC DUE TO OCCLS OR STENOSIS OF SMALL ARTERY (3) Diabetes insipidus Code(s): E23.2 - DIABETES INSIPIDUS (4) Hypertension Code(s): I10 - ESSENTIAL (PRIMARY) HYPERTENSION Qualifiers: Hypertension type: essential hypertension Qualified Code(s): I10 - Essential (primary) hypertension Assessment/Plan Current Medications Generic Name Dose Route Start Last Admin Trade Name Pavel PRN Reason Stop Dose Admin Amlodipine Besylate 5 mg 11/06/19 10:00 11/11/19 09:23 Norvasc - PO 5 mg DAILY [facility] Administration Aspirin 81 mg 11/07/19 10:00 11/11/19 09:24 Ecotrin - PO 81 mg DAILY [facility] Administration Atorvastatin Calcium 40 mg 11/06/19 22:00 11/10/19 21:11 Lipitor - PO 40 mg HS [facility] Administration Desmopressin Acetate 0.2 mg 11/11/19 14:00 11/11/19 14:34 Ddavp - PO Not Given TID [facility] Heparin Sodium (Porcine) 5,000 unit 11/06/19 22:00 11/11/19 14:34 Heparin - SQ 5,000 unit TID [facility] Administration Losartan Potassium 100 mg 11/06/19 10:00 11/11/19 09:24 Cozaar - PO 100 mg DAILY [facility] Administration Polyethylene Glycol 17 gm 11/09/19 10:30 11/11/19 09:24 Miralax (For Daily Use) - PO Not Given BID JACKIE Impression 1. diabetes insipidus 2. htn 3. change in mental status/confusion 4. CVA Plan - sodium at 135 - decrease desmopressin to 0.1 TID - discussed with pt and , it is unclear how much he was taking at home - pt will come to lab on for repeat sodium - pt will monitor for polyuria
--- NOTE | 2019-11-11 15:19 | DS ---
Physical Exam: SUBJECTIVE: Patient seen and examined OBJECTIVE: Vital Signs Period Temp Pulse Resp BP Sys/Harmon Pulse Ox Last 24 Hr 97.7 F-98.2 F 76-106 16-18 130-151/70-87 97-97 PHYSICAL EXAM GENERAL: The patient is awake, alert, and fully oriented, in no acute distress. HEAD: Normal with no signs of trauma. EYES: PERRL, extraocular movements intact, sclera anicteric, conjunctiva clear. No ptosis. ENT: Ears normal, nares patent, moist mucous membranes. NECK: Trachea midline, full range of motion, supple. LUNGS: Breath sounds equal, clear to auscultation bilaterally, no wheezes, no crackles, no accessory muscle use. HEART: Regular rate and rhythm, S1, S2 without murmur, rub or gallop. ABDOMEN: Soft, nontender, nondistended, normoactive bowel sounds, no guarding, no rebound, no hepatosplenomegaly, no masses. EXTREMITIES: 2+ pulses, warm, well-perfused, no edema. NEUROLOGICAL: Cranial nerves II through XII grossly intact. Normal speech, normal gait observed. NIHSS 1(very mild Left-sided nasolabial effacement) PSYCH: Normal mood, normal affect. SKIN: Warm, dry, normal turgor, no rashes or lesions noted LABS Laboratory Results - last 24 hr 11/11/19 11/11/19 05:40 13:06 Sodium 135 L 135 L Potassium 4.5 4.3 Chloride 105 103 Carbon Dioxide 22 25 Anion Gap 8 8 BUN 15.5 16.0 Creatinine 0.9 0.9 Est GFR (CKD-EPI)AfAm 111.05 111.05 Est GFR (CKD-EPI)NonAf 95.81 95.81 Random Glucose 96 112 H Calcium 8.8 9.6 Total Bilirubin 0.5 AST 87 H ALT 122 H Alkaline Phosphatase 89 Total Protein 6.9 Albumin 4.0 HOSPITAL COURSE: Date of Admission:11/05/19 Date of Discharge: 11/11/19 54 year old male with history of pinealoma (s/p radiation at 15yo), diabetes insipidus, hypertension, admitted for acute metabolic encephalopathy. Patient was expressing confusion, mild short-term memory loss. Has been endorsing frequent urination. Has mild Left-sided nasolabial effacement. Neuro rec ASA + statin. Pt's insisting on hearing about an episode of documented Afib. No afib found on documentation. Neuro consulted Cardio. Echo normal. US carotid normal. Cardio([facility]) placed pt on Holter. S&S rec soft diet with thin liquids. Walked 400ft w/ PT. Holter showing rare events in 24hs(2 isolated ventric ectopy , 7 isolated SV ectopy). Endorsed difficulty swallowing pills, experiencing cough. S&S recommended MBSS, which was neg. Diet changed to regular consistency w/ thin liquids. Having hyponatremia on 11/10/19. Desmopressin dosage changed to 0.1mg q8h, to be started on discharge. LFTs elevated, but pt asymptomatic. RUQ US was not pursued as inpatient. LFTs possibly 2/2 statin. Pt given requisition form for bloodwork(CMP) to be taken two days after discharge. Nephro to follow the sodium and LFTs to be followed up by GI or PCP. Minutes to complete discharge: 20 Discharge Summary Problems reviewed: Yes Reason For Visit: ALTERED MENTAL STATUS Current Active Problems AMS (altered mental status) (Acute) Acute lacunar stroke (Acute) Diabetes insipidus (Acute) Hypertension (Acute) Condition: Stable - Instructions Diet, Activity, Other Instructions: You were evaluated in the hospital for confusion, weakness. Head CT was normal. Brain Electroencephalography was normal. Brain MRI showed a small stroke in the Right-side of the brain. Labwork showed elevated liver enzymes. A loader semiconductor dies evaluated you did not find any abnormalities in your telemetry, or Holter readings. Your desmopressin dosage was changed. Your symptoms improved. Medications: - NEW medications: --ASA[ECOTRIN] 81mg, once daily --Atorvastatin Calcium[LIPITOR] 40mg, once daily - CHANGE in medications: --desmopressin[DVAP]: 0.1mg, three times daily Please follow up with the physicians below within 1-2weeks: - Primary Care Physician: please discuss your recent hospitalization - Program Counselor: to discuss your desmopressin dosage change - Neurologist(Brii): to follow-up on your recent Stroke - Universal Branch Consultant(Serenity): to continue monitoring your sodium and desmopressin dosing - Forming Machine Upkeep Mechanic(Arminda): to discuss your elevated liver enzymes Additional Instructions: - Please get bloodwork to check your CMP(complete metabolic panel) on 11/13/19 - -can be arranged at Dr Benton's office or our [facility]( Dr Sosa) - Diet: -- restricted sodium of less than 2g daily -- regular consistency with thin liquids -- eat slowly, take small bites, keep head in neutral or flexed position Please seek immediate medical evaluation if you experience: - severe headache, dizziness, nausea, vomiting Referrals: Emmanuel Muse NP [Non Staff, Medical] - Ky Rogers MD [Staff Physician] - Grant Owens MD [Staff Physician] - Michele Benton MD [Staff Physician] - Baldev Romero MD [Staff Physician] - Evelia Sosa MD [Staff Physician] - Disposition: HOME - Home Medications Comprehensive Discharge Medication List: Ambulatory Orders Amlodipine Besylate 5 mg PO DAILY 07/17/19 Losartan Potassium 100 mg PO DAILY 07/17/19 Aspirin Coated [Ecotrin -] 81 mg PO DAILY #30 tablet.ec 11/11/19 Atorvastatin Ca [Lipitor] 40 mg PO HS #30 tablet 11/11/19 Desmopressin Acetate [Desmopressin Acetate -] 0.1 mg PO TID #90 tablet 11/11/19 This patient is new to me today: No Emergency Visit: Yes ED Registration Date: 11/05/19 Care time: The patient presented to the Emergency Department on the above date and was hospitalized for further evaluation of their emergent condition. Critical Care patient: No - Discharge Referral Referred to [facility] Med P.C.: No ATTENDING PHYSICIAN STATEMENT I saw and evaluated the patient. I reviewed the resident's note and discussed the case with the resident. I agree with the resident's findings and plan as documented. SUBJECTIVE: OBJECTIVE: ASSESSMENT AND PLAN:
[2019-11-11 16:21] VITALS: BP 129/73; PULSE 92; TEMP 98.6
== END 2019-11-11 17:32 | disposition home or self-care (01) | DRG 64 ==
LOC: JER 12:37 → JERBED 18:00 → J4S 11-06 18:49
PROVIDERS: ADMIT Internal Medicine; ATTEND Internal Medicine
PROC: 4A00X4Z Measurement of Central Nervous Electrical Activity, External Approach (ICD-10-PCS; principal; 2019-11-06)
DX: I63.9 Cerebral infarction, unspecified (principal); G93.41 Metabolic encephalopathy; E23.2 Diabetes insipidus; E87.1 Hypo-osmolality and hyponatremia; I10 Essential (primary) hypertension; E86.0 Dehydration; E78.5 Hyperlipidemia, unspecified; I48.0 Paroxysmal atrial fibrillation; R29.701 NIHSS score 1
CPT/HCPCS: 36415; 70450-TC; 70551-TC; 71045-TC-FY; 74230-TC-FY; 80048; 80053; 80061; 81003; 83721; 83735; 83935; 84100; 84300; 85025; 85027; 87040; 87086; 90732; 92611-GN; 93005; 93010; 93225; 93226; 93306-TC; 93880-TC; 95816; 97116-GP; 97161-GP; 99285-25; G0009; J1644; J7030

== ENCOUNTER 2021-04-22 05:04 | Day surgery (SDC) | payer OTHER ==
[2021-04-19 15:15] VITALS: BMI 41.0
[2021-04-22] MEDS ORDERED: MIDAZOLAM HCL 2 MG/2 ML SINGLE DOSE VIAL ONE ×2 (07:31→07:56)
[2021-04-22] MEDS ORDERED: PROPOFOL 20 ML ONE (07:31)
[2021-04-22] MEDS ORDERED: ACETAMINOPHEN 1000 MG/100 ML VIAL (NON FORMULARY) IVPB ONE ×2 (07:37→09:38)
[2021-04-22] MEDS ORDERED: DEXTROSE 5%-0.45% SALINE 1,000 ML IV SCH (07:45)
[2021-04-22] MEDS ORDERED: ceFAZolin SODIUM 1 GM VIAL IVPB ONE (08:00)
[2021-04-22] MEDS ORDERED: oxyCODONE HCL 5 MG TABLET PO PRN ×2 (09:06)
[2021-04-22] MEDS ORDERED: ONDANSETRON 4 MG/2 ML VIAL IVPUSH PRN (09:06)
[2021-04-22] MEDS ORDERED: LACTATED RINGERS SOLUTION 1,000 ML IV SCH (09:15)
[2021-04-22] MEDS ORDERED: ACETAMINOPHEN INJECTION 100 ML IVPB ONE (09:35)
[2021-04-22 14:13] VITALS: BP 118/78; PULSE 68; TEMP 97.8
== END 2021-04-22 13:35 | disposition home or self-care (01) ==
LOC: JASU-SURG 05:04
PROVIDERS: ATTEND Urology
PROC: 0T7D8DZ Dilation of Urethra with Intraluminal Device, Via Natural or Artificial Opening Endoscopic (ICD-10-PCS; principal; 2021-04-22 07:30)
DX: N40.1 Benign prostatic hyperplasia with lower urinary tract symptoms (principal); R35.0 Frequency of micturition
CPT/HCPCS: C9740; L8699; 94760; J0131

== ENCOUNTER 2024-09-25 10:31 | Emergency (ER) | payer OTHER ==
[2024-09-25 11:33] VITALS: BP 122/65; PULSE 71; RESP 20; TEMP 97.4; BMI 44.5
[2024-09-25] MEDS ORDERED: ACETAMINOPHEN INJECTION 100 ML ONE (11:53)
[2024-09-25] MEDS ORDERED: ONDANSETRON 4 MG/2 ML VIAL ONE (11:54)
[2024-09-25 11:59] LABS: BASO % 1.4 % (0-2.0); EOS % 5.6 % (0-4.5); HEMATOCRIT 40.1 % (35.4-49); HEMOGLOBIN 13.8 GM/dL (11.7-16.9); LYMPH % 6.2 % (8-40); MCH 27.9 pg (25.7-33.7); MCHC 34.4 g/dl (32.0-35.9); MEAN PLT VOLUME 6.8 fl (7.5-11.1); MONO % 8.1 % (3.8-10.2); NEUT % 78.7 % (42.8-82.8); PLATELET COUNT 215 10^3/uL (134-434); RBC 4.95 M/mm3 (4.00-5.60); RDW 15.7 % (11.9-15.9); WHITE BLOOD COUNT 5.3 K/mm3 (4.0-10.0)
[2024-09-25] MEDS: ONDANSETRON 4 MG/2 ML VIAL IVPUSH ONE (12:02)
[2024-09-25] MEDS: ACETAMINOPHEN 1000 MG/100 ML BAG IVPB ONE (12:02)
[2024-09-25 12:05] LABS: INR 1.06 (0.83-1.09)
[2024-09-25] MEDS ORDERED: FAMOTIDINE 10 MG TABLET ONE (12:12)
[2024-09-25 12:23] LABS: POTASSIUM 3.9 mmol/L (3.5-5.1)
[2024-09-25] MEDS: FAMOTIDINE 10 MG TABLET PO ONE (12:23)
[2024-09-25 12:29] LABS: BLOOD UREA NITROGEN 14.5 mg/dL (7-18); CALCIUM 9.4 mg/dL (8.5-10.1); MAGNESIUM 2.3 mg/dL (1.8-2.4)
[2024-09-25 12:30] LABS: ALBUMIN 4.2 g/dl (3.4-5.0)
[2024-09-25 12:32] LABS: CREATININE 1.1 mg/dL (0.55-1.3); PHOSPHOROUS 2.6 mg/dL (2.5-4.9)
[2024-09-25 12:33] LABS: BILIRUBIN,TOTAL 0.8 mg/dL (0.2-1); TOT PROT 7.5 g/dl (6.4-8.2)
[2024-09-25 12:55] LABS: PH,URINE 6.5 (5.0-8.0); URINE APPEARANCE CLEAR; URINE BILIRUBIN NEGATIVE (NEGATIVE); URINE COLOR YELLOW; URINE GLUCOSE (UA) NEGATIVE (NEGATIVE); URINE KETONE NEGATIVE (NEGATIVE); URINE LEUK ESTERASE NEGATIVE (NEGATIVE); URINE NITRITE NEGATIVE (NEGATIVE); URINE PROTEIN NEGATIVE (NEGATIVE)
== END 2024-09-25 14:54 | disposition home or self-care (01) ==
LOC: JER 10:31
PROC: 3E033NZ Introduction of Analgesics, Hypnotics, Sedatives into Peripheral Vein, Percutaneous Approach (ICD-10-PCS; principal; 2024-09-25)
PROC: 3E033GC Introduction of Other Therapeutic Substance into Peripheral Vein, Percutaneous Approach (ICD-10-PCS; 2024-09-25)
DX: R07.89 Other chest pain (principal); R11.10 Vomiting, unspecified; R19.7 Diarrhea, unspecified; R61 Generalized hyperhidrosis; R53.1 Weakness
CPT/HCPCS: 36415; 71045-TC-FY; 80053; 81003; 82962; 83690; 83735; 84100; 84484; 85025; 85610; 85730; 87086; 93005; 93010; 96374; 96375; 99285-25; J0131